=== PATIENT | female | born 1990 | race Caucasian/White ===

== ENCOUNTER 2018-02-11 17:04 | Outpatient (CLI) | payer MEDICAID, SELFPAY ==
--- NOTE | 2018-02-11 | US_ITS ---
US OB /maternal detail, US SD Ratio umbilical artery, US OB biophysical profile: INDICATION: 34 weeks with no care, patient in withdrawal ITS.REASON: no care, incarcerated, r/o abruption or ORDERING PHYSICIAN: Carrie Waller MD PATIENT AGE: 27 years TECHNIQUE: ultrasound transabdominal scanning. COMPARISON: No previous relevant studies. FINDINGS: The study is technically limited. The patient is in withdrawal and unable to hold still Single viable intrauterine gestation. Cephalic position. Placenta: Fundal placenta grade 3. There is average amount fluid. The cervix appears satisfactory. Closed and measuring 4 cm in length. Measurements: Average ultrasound age 33 weeks 0 days. Gestational Age 33 weeks 6 days. Estimated due date by ultrasound age 1204/01/2018. Estimated weight 2057 g grams.. This is 17th percentile BPD = 32 weeks 6 days OFD = 29 weeks 0 days HC = 33 weeks 4 days AC = 33 weeks 0 days FL = 32 weeks 3 days Growth Percentile= 17 percentile Heart Rate = 1 61 bpm HC/AC is 1.04. CI is 86%. FL/BPD is 76%. FL/AC is 22% SD ratio is 4.5 Resistive index is 0.78. Biophysical profile dated August 12 IMPRESSION: There is a single live fetus which is in cephalic presentation. heart and body motion is noted. Average ultrasound age is 33 weeks and 0 days with an estimated due date by ultrasound of 04/01/2018. All parameters correlate. Estimated weight is 2057 g which is 70%. Biophysical profile dated . Placenta is fundal and grade 3. ST ratio and resistive index are both greater than 95th percentile.
[2018-02-11 17:15] VITALS: BP 121/75; PULSE 88; RESP 18; TEMP 36.5; O2SAT 100; BMI 26.2
[2018-02-11 17:16] VITALS: BMI 25.7
[2018-02-11 19:39] LABS: Microscopic, Urine URINE MICROSCOPIC (MICROSCOPIC)
[2018-02-11 19:43] LABS: Appearance,Urine CLEAR (Clear); Bilirubin,Urine Negative (Negative); Blood, Urine Negative (Negative); Color,Urine YELLOW (Yellow); Glucose,Urine (UA) 1+ (Negative); Ketones,Urine 3+ (Negative); Leukocyte Esterase,Urine Negative (Negative); Nitrate,Urine Negative (Negative); Protein,Urine Negative (Negative); Urobilinogen,Urine 0.2 EU/dl (0.2)
[2018-02-11 19:50] LABS: Eosinophils % 0.2 % (0.1-12.0); Hematocrit 29.3 % (37.0-47.0); Hemoglobin 9.8 g/dL (12.2-16.2); Lymphocytes # 0.9 K/mm3 (0.7-4.5); Lymphocytes % 15.6 % (10-50); Mean Corpuscular HGB Conc 33.3 g/dL (31.8-35.4); Mean Corpuscular Hemoglobin 31.8 pg (27.0-31.2); Mean Corpuscular Volume 95.4 fl (81-99); Mean Platelet Volume 6.9 fl (7.4-10.4); Monocytes # 0.2 K/mm3 (0.1-1.0); Monocytes % 2.9 % (1.7-9.3); Neutrophils # 4.9 K/mm3 (1.8-7.8); Neutrophils % 81.3 % (37.0-80.0); Platelet Count 147 K/mm3 (142-424); Red Blood Count 3.07 M/mm3 (4.20-5.40); Red Cell Distribution Width 16.8 % (11.5-17.5)
[2018-02-11 19:55] LABS: Amphetamine/Metha Screen,Urine Negative ng/mL (<1000); Barbiturates Screen,Urine Negative ng/mL (<200); Benzodiazepines Screen,Urine Negative ng/mL (<200); Cannabinoid Screen,Urine Negative ng/mL (<50); Cocaine Screen,Urine Negative ng/mL (<300); Methadone Screen,Urine Positive ng/mL (<300); Opiate Screen,Urine Negative ng/mL (<300); Phencyclidine Screen,Urine Negative ng/mL (<25)
[2018-02-11 19:57] LABS: Bacteria,Urine Trace /lpf
[2018-02-13 08:26] LABS: HIV Screen 4th Generation wRfx Non Reactive (Non Reactive)
[2018-02-13 15:51] LABS: Hepatitis B Surface Antigen Negative (Negative); Rapid Plasma Reagin Ab Titer Non Reactive (NonRea<1:1); Rubella Antibodies, IgG 1.04 index (Immune >0.99)
== END 2018-02-11 22:00 | disposition left against medical advice (07) ==
LOC: OBOUT 17:07 → OB 17:09
PROVIDERS: Visit Provider Obstetrics & Gynecology
DX: O36.8130 Decreased fetal movements, third trimester, not applicable or unspecified (principal); Z3A.34 34 weeks gestation of pregnancy
CPT/HCPCS: 36415; 59025; 76811; 76819; 76820; 80305; 81001; 85025; 86592; 86762; 86850; 86870; 87340; 96360; 96361; 96372

== ENCOUNTER 2020-03-22 16:55 | Outpatient (RCR) | payer OTHER, SELFPAY ==
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
== END 2020-03-22 16:59 | disposition home or self-care (01) ==
LOC: PT 16:55
PROVIDERS: PCP Nurse Practitioner Family; Visit Provider Specialist
DX: R51.9 Headache, unspecified (principal); G89.29 Other chronic pain; M54.41 Lumbago with sciatica, right side; Z87.828 Personal history of other (healed) physical injury and trauma
CPT/HCPCS: 97163

== ENCOUNTER 2020-04-04 11:24 | Emergency (ER) | payer OTHER, SELFPAY ==
--- NOTE | 2020-04-04 12:07 | HMH.EDUTC ---
[facility] [place] Impression: Viral syndrome Disposition: Home, Self-Care Condition on Discharge: Good Instructions: DI for Viral Syndrome, Preventing the Spread of Coronavirus Discharge Instructions Additional Instructions: Drink plenty of fluids. Take tylenol for pain or fever. Take the medications as directed. Follow up with your regular doctor. GO TO THE ER FOR ANY WORSENING SYMPTOMS Prescriptions: Ondansetron [Zofran 4mg ODT] 4 mg PO Q8HP PRN #12 tab.rapdis PRN Reason: Nausea Transmission Status: Received by [facility][id number] Referrals: PCP,No [Primary Care Provider] - Forms: Work/School Release Time of Disposition: 12:20 Medical Decision Making - Medical Records Medical records reviewed: No: I reviewed the patient's medical records. - Christian Inquiry Pt receiving controlled substance: No Vital Signs: 04/04/20 12:16 04/04/20 13:08 Temperature 97.8 F 97.8 F Temperature Source Oral Pulse Rate 85 Pulse Rate [Left] 85 Respiratory Rate 19 19 Blood Pressure 112/73 Blood Pressure [Right Arm] 112/73 Blood Pressure Mean [Right Arm] 86 Blood Pressure Source [Right Arm] Automatic Cuff Blood Pressure Position [Right Arm] Sitting 02 Sat by Pulse Oximetry 98 Oxygen Delivery Method Room Air - Lab Data Lab Results 04/04/20 12:00: Influenza Type A Ag Negative, Influenza Type B Ag Negative 04/04/20 12:17: Strep Scn Rapid Clinic Negative Orders (Tests/Meds): ORDERS Category Date Time Status Covid-19 Nasal PCR Sendout P&C Stat Lab 04/04/20 12:00 Received Strep Screen Confirmation Stat Micro 04/04/20 12:17 [place] [facility] [place] - General Stated complaint: vomiting,achy.headache Time Seen by Provider: 04/04/20 12:16 - History of Present Illness Provider Complaint: She states that since earlier this morning, she has had n/v and body aches. She denies any known exposure to covid. - Related Data Home Medications Medication Instructions Recorded Confirmed Buprenorphine HCl/Naloxone HCl 1.5 tab SL DAILY 06/28/19 03/16/20 [Buprenorphin-Naloxon 8-2 mg Sl] Previous Rx's Medication Instructions Recorded amitriptyline 10 mg tablet See Rx Instructions PO HS #60 tab 03/16/20 sumatriptan succinate 100 mg tablet See Rx Instructions PO .COMPLEX 03/16/20 #10 tab Ondansetron [Zofran 4mg ODT] 4 mg PO Q8HP PRN #12 tab.rapdis 04/04/20 Allergies Allergy/AdvReac Type Severity Reaction Status Date / Time No Known Allergies Allergy Verified 03/16/20 09:34 [facility] History - Hepatitis A Screen Attestation statement:: This patient has been screened for Hepatitis A risk factors. I have reviewed the patient's past medical history: Yes Medical History: Reports:: Anxiety, Migraine Denies:: Diabetes Mellitus Type 1, Diabetes Mellitus Type 2, Internal Pacemaker Other Medical History: Reports: Anemia, Liver Disease (Hepatitis C) Other Surgeries: Yes: Dilation and Curettage, Splenectomy (partial splenectomy), Tubal Ligation. No: , Pacemaker Amputation: No Fractures: Yes (FEMUR) - Social History Smoking Status: Current every day smoker Tobacco Type: e-cigarettes # Packs/Day (cigarettes): 1 Alcohol Intake: never Substance Use Type: crack/cocaine, marijuana Occupational Status: employed Housing: house Household Members: family, children - Psychiatric History Pschychiatric History:: Reports:: Anxiety Family Hx:: Cancer, Other (copd) ROS Obtained: Yes All systems reviewed & no additional complaints - Constitutional Constitutional: Reports system reviewed and no additional complaints, except as docu - Eyes Eyes: Reports system reviewed and no additional complaints, except as docu - ENT Ears, Nose, Mouth, and Throat: Reports system reviewed and no additional complaints, except as docu - Cardiovascular Cardiovascular: Reports system reviewed and no additional complaints, except as docu - Respiratory Respiratory:
[2020-04-04 12:16] VITALS: BP 112/73; PULSE 85; RESP 19; TEMP 36.6; O2SAT 98; BMI 27.4
[2020-04-04 13:08] VITALS: BP 112/73; PULSE 85; RESP 19; TEMP 36.6; O2SAT 98
[2020-04-04 17:44] LABS: UTC Strep Screen (Rapid) Negative (Negative)
[2020-04-04 17:44] LABS: UTC Influenza A Antigen Negative (Negative); UTC Influenza B Antigen Negative (Negative)
[2020-04-05 10:00] LABS: Covid-19 Nasal PCR Sendout P&C Negative
== END 2020-04-04 13:09 | disposition home or self-care (01) ==
PROVIDERS: Emergency Provider Nurse Practitioner Family
DX: Z20.828 Contact with and (suspected) exposure to other viral communicable diseases (principal); B34.9 Viral infection, unspecified; F41.9 Anxiety disorder, unspecified; F17.290 Nicotine dependence, other tobacco product, uncomplicated
CPT/HCPCS: 87804; 87880; 99202; U0004

== ENCOUNTER 2020-04-26 17:46 | Emergency (ER) | payer OTHER, SELFPAY ==
[2020-04-26 17:46] VITALS: BP 133/82; PULSE 89; RESP 16; TEMP 37.1; O2SAT 99; BMI 29.1
--- NOTE | 2020-04-26 18:09 | HMH.EDUTC ---
[facility] [place] Clinical Impression: Exposure to COVID-19 virus Sinusitis Qualifiers: Sinusitis location: unspecified location Chronicity: acute Recurrence: non-recurrent Qualified Code(s): J01.90 - Acute sinusitis, unspecified Disposition: Home, Self-Care Condition on Discharge: Good Instructions: Preventing the Spread of Coronavirus Discharge Instructions Additional Instructions: Drink plenty of fluids. Take tylenol for pain or fever. Return if you begin to have difficulty breathing. Follow up with your regular doctor. GO TO THE ER FOR ANY WORSENING SYMPTOMS Prescriptions: Azithromycin [Z-Harry 250mg Tab*] 250 mg PO UD DOSE PK #6 tab Transmission Status: Received by [facility] # Cetirizine HCl [Zyrtec] 10 mg PO DAILY 30 Days #30 cap Transmission Status: Received by [facility] # Referrals: Hiren Mandujano APRN [Primary Care Provider] - Time of Disposition: 18:19 Medical Decision Making - Medical Records Medical records reviewed: No: I reviewed the patient's medical records. - Christian Inquiry Pt receiving controlled substance: No Vital Signs: 04/26/20 17:46 04/26/20 18:30 Temperature 98.7 F 98.7 F Temperature Source Oral Oral Pulse Rate 89 Pulse Rate [Right] 89 Respiratory Rate 16 16 Blood Pressure 133/82 Blood Pressure [Right Arm] 133/82 Blood Pressure Mean [Right Arm] 99 02 Sat by Pulse Oximetry 99 Orders (Tests/Meds): ORDERS Category Date Time Status Covid-19 Nasal PCR Sendout P&C Stat Lab 04/26/20 18:00 [place] [facility] [place] - General Stated complaint: Wants covid test, no symptoms Time Seen by Provider: 04/26/20 18:19 Description of Symptoms (Recalled from Triage Doc. by RN): pt request COVID test pt has no symptoms HEENT Symptoms (Recalled from RN notes): No Resp Symptoms (Recalled from RN notes): No Skin Symptoms (Recalled from RN notes): No MS Symptoms (Recalled from RN notes): No Functional Status (Recalled from RN notes): wnl - History of Present Illness Provider Complaint: She was sent here to have a covid test. She denies any symptoms. - Related Data Home Medications Medication Instructions Recorded Confirmed Buprenorphine HCl/Naloxone HCl 1.5 tab SL DAILY 06/28/19 03/16/20 [Buprenorphin-Naloxon 8-2 mg Sl] Previous Rx's Medication Instructions Recorded amitriptyline 10 mg tablet See Rx Instructions PO HS #60 tab 03/16/20 sumatriptan succinate 100 mg tablet See Rx Instructions PO .COMPLEX 03/16/20 #10 tab Ondansetron [Zofran 4mg ODT] 4 mg PO Q8HP PRN #12 tab.rapdis 04/04/20 Azithromycin [Z-Harry 250mg Tab*] 250 mg PO UD DOSE PK #6 tab 04/26/20 Cetirizine HCl [Zyrtec] 10 mg PO DAILY 30 Days #30 cap 04/26/20 Allergies Allergy/AdvReac Type Severity Reaction Status Date / Time No Known Allergies Allergy Verified 04/26/20 18:04 - Worker's Comp Is this a Worker's Comp case?: No Is this an H Worker's Comp?: No Is this a [place] Worker's Comp?: No [facility] History - Hepatitis A Screen Drug use history?: No High risk sexual behaviors?: No History of sexually transmitted infection?: No Currently employed?: No Childcare worker?: No Do you have indoor plumbing?: No Do you have electricity?: No Attestation statement:: This patient has been screened for Hepatitis A risk factors. I have reviewed the patient's past medical history: Yes Medical History: Reports:: Anxiety, Migraine Denies:: Diabetes Mellitus Type 1, Diabetes Mellitus Type 2, Internal Pacemaker Other Medical History: Reports: Anemia, Liver Disease (Hepatitis C) Other Surgeries: Yes: Dilation and Curettage, Splenectomy (partial splenectomy), Tubal Ligation. No: , Pacemaker Amputation: No Fractures: Yes (FEMUR) - Social History Smoking Status: Never smoker Tobacco Type: smokeless tobacco # Packs/Day (cigarettes): 1 Alcohol Intake: never Substance Use Type: crack/cocaine, marijuana Occupational Status: other Housing
[2020-04-26 18:30] VITALS: BP 133/82; PULSE 89; RESP 16; TEMP 37.1; O2SAT 99
[2020-04-28 11:11] LABS: Covid-19 Nasal PCR Sendout P&C NEGATIVE
== END 2020-04-26 18:31 | disposition home or self-care (01) ==
PROVIDERS: Emergency Provider Nurse Practitioner Family; PCP Nurse Practitioner Family
DX: Z20.822 Contact with and (suspected) exposure to COVID-19 (principal); J01.90 Acute sinusitis, unspecified; F41.9 Anxiety disorder, unspecified; G43.709 Chronic migraine without aura, not intractable, without status migrainosus; F17.210 Nicotine dependence, cigarettes, uncomplicated; Z79.899 Other long term (current) drug therapy
CPT/HCPCS: 99202; G0463; U0004

== ENCOUNTER → 2020-04-29 09:53 | Outpatient (CLI) | payer OTHER, SELFPAY ==
--- NOTE | 2020-04-29 09:54 | MR_ITS ---
PROCEDURE: MR HEAD/BRAIN WO CON CLINICAL INDICATION: chronic headaches PT C/O MIGRAINE H/A'S SINCE June 2018 AND THEY ARE GETTING WORSE. COMPARISON: No exams were available for comparison TECHNIQUE: Routine multiplanar multi echo sequences are performed without gadolinium enhancement. FINDINGS: No midline shift, mass effect, intracranial hemorrhage, or hydrocephalus. The cerebellopontine angles, cerebellum, brainstem, and mid brain have an unremarkable appearance. Unremarkable white matter. The pituitary, optic chiasm, corpus callosum, and craniocervical junction have an unremarkable appearance. No mastoid effusion or sinus air-fluid levels. Unremarkable orbits. IMPRESSION: Negative MRI of the brain without contrast. No acute finding. Dictated by: Andrews Salcedo MD 05/02/2020 09:54 Andrews Salcedo MD in [place] 05/02/2020 09:54
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
== END ==
PROVIDERS: PCP Nurse Practitioner Family; Visit Provider Specialist
DX: F19.11 Other psychoactive substance abuse, in remission (principal); R51.9 Headache, unspecified; G89.29 Other chronic pain; M54.41 Lumbago with sciatica, right side; Z87.828 Personal history of other (healed) physical injury and trauma
CPT/HCPCS: 70551; 72110

== ENCOUNTER 2020-06-01 19:44 | Emergency (ER) | payer OTHER, SELFPAY ==
[2020-06-01 19:45] VITALS: BP 108/60; PULSE 67; RESP 20; TEMP 37.1; O2SAT 97; BMI 28.3
[2020-06-01 20:27] VITALS: BP 108/60; PULSE 67; RESP 20; TEMP 37.1; O2SAT 97
--- NOTE | 2020-06-01 20:28 | HMH.EDUTC ---
[facility] [place]ression: Encounter for laboratory testing for COVID-19 virus Headache Qualifiers: Headache type: unspecified Headache chronicity pattern: unspecified pattern Intractability: not intractable Qualified Code(s): R51.9 - Headache, unspecified Disposition: Home, Self-Care Condition on Discharge: Good Instructions: DI for Headache, DI for COVID-19 (Suspected or Confirmed ), Coronavirus Disease 2019, Preventing the Spread of Coronavirus Discharge Instructions Additional Instructions: Go home lay down and try to sleep off remainder of headache *Monitor Temp, Over the counter Motrin or Tylenol as directed/as needed Tylenol every 4 hours and Motrin every 6 hours (as long as your family doctor has told you that you can take it) for fever or pain. and straight to ER if unable to lower temp less than 101.0 after medication given Follow up IMMEDIATELY for new or worsening symptoms or no Noticeable improvement over the next 48-72 hours. 911 for difficulty breathing or swallowing You were tested for today for COVID19 your test result should be back in the next 24-48 hours, you may call to the [facility] to see if your test results are back in the next 48 hours [phone] [facility] hours are 9am-9pm You was given a handout with instructions for Self Quarantine and Self isolation for while you wait on test results and what to do if they are positive If you are positive the Health Dept will be contacting you also Referrals: Terry Hardy MD [Primary Care Provider] - As needed Forms: Work/School Release Time of Disposition: 20:57 Medical Decision Making - Christian Inquiry Pt receiving controlled substance: No Christian was queried for this patient: No Vital Signs: 06/01/20 19:45 06/01/20 20:27 Temperature 98.7 F 98.7 F Temperature Source Oral Pulse Rate 67 Pulse Rate [Right Brachial] 67 Respiratory Rate 20 20 Blood Pressure 108/60 L Blood Pressure [Right Arm] 108/60 L Blood Pressure Mean [Right Arm] 76 Blood Pressure Source [Right Arm] Automatic Cuff Blood Pressure Position [Right Arm] Sitting 02 Sat by Pulse Oximetry 97 Oxygen Delivery Method Room Air Orders (Tests/Meds): ED MEDICATIONS Discontinued Medications Generic Name Dose Route Start Last Admin Trade Name Freq PRN Reason Stop Dose Admin Ketorolac Tromethamine 60 mg 06/01/20 20:42 06/01/20 20:35 Ketorolac 60mg/2ml Vial IM 06/01/20 20:43 60 mg ONCE ONE Administration ORDERS Category Date Time Status Covid-19 Nasal PCR [facility]) Routine Lab 06/01/20 19:50 Received Medical Decision Narrative: Patient states that she has had tubal Patient states that headache is much better and almost gone after Toradol [facility] [place] - General Stated complaint: covid test Time Seen by Provider: 06/01/20 20:28 Mode of Arrival: Ambulatory Source of Information: Patient Limitations: No Limitations Description of Symptoms (Recalled from Triage Doc. by RN): COVID TEST D/T POSSIBLE EXPOSURE. C/O HEADACHE X 6 DAYS HEENT Symptoms (Recalled from RN notes): Yes Resp Symptoms (Recalled from RN notes): No Skin Symptoms (Recalled from RN notes): No MS Symptoms (Recalled from RN notes): No Functional Status (Recalled from RN notes): WNL - History of Present Illness Provider Complaint: Patient states that she was around someone last week that was positive for COVID States that she has had headache for about 6 days on and off States that she took her migraine medication yesterday and helped then today it was back States that she wanted to see if she could get something for headache - Related Data Home Medications Medication Instructions Recorded Confirmed Buprenorphine HCl/Naloxone HCl 1.5 tab SL DAILY 06/28/19 03/16/20 [Buprenorphin-Naloxon 8-2 mg Sl] Previous Rx's Medication Instructions Recorded amitriptyline 10 mg tablet See Rx Instructions PO HS #60 tab 03/16/20 sumatriptan succinate 100 mg tablet See Rx Instructions PO .COM
== END 2020-06-01 21:10 | disposition home or self-care (01) ==
PROVIDERS: Emergency Provider Nurse Practitioner; PCP Internal Medicine Adolescent Medicine
DX: Z20.822 Contact with and (suspected) exposure to COVID-19 (principal); R51.9 Headache, unspecified; F41.9 Anxiety disorder, unspecified
CPT/HCPCS: 99202; G0463; U0003

== ENCOUNTER 2020-07-25 11:31 | Emergency (ER) | payer OTHER, SELFPAY ==
[2020-07-25 11:44] VITALS: BP 97/64; PULSE 68; RESP 14; O2SAT 98; BMI 28.3
--- NOTE | 2020-07-25 11:52 | HMH.EDUTC ---
[facility] [place] Clinical Impression: Exposure to COVID-19 virus Disposition: Home, Self-Care Condition on Discharge: Good Instructions: Preventing the Spread of Coronavirus Discharge Instructions Additional Instructions: Drink plenty of fluids. Take tylenol for pain or fever. Return if you begin to have difficulty breathing. Follow up with your regular doctor. GO TO THE ER FOR ANY WORSENING SYMPTOMS Referrals: Hiren Mandujano APRN [Primary Care Provider] - Forms: Work/School Release Time of Disposition: 11:55 Medical Decision Making - Medical Records Medical records reviewed: No: I reviewed the patient's medical records. - Christian Inquiry Pt receiving controlled substance: No Vital Signs: 07/25/20 11:44 07/25/20 11:56 Temperature 98.2 F Pulse Rate 68 Pulse Rate [Right Brachial] 68 Respiratory Rate 14 14 Blood Pressure 97/64 L Blood Pressure [Right Arm] 97/64 L Blood Pressure Mean [Right Arm] 75 Blood Pressure Source Automatic Cuff Blood Pressure Source [Right Arm] Automatic Cuff Blood Pressure Position Sitting Blood Pressure Position [Right Arm] Sitting 02 Sat by Pulse Oximetry 98 Oxygen Delivery Method Room Air Orders (Tests/Meds): ORDERS Category Date Time Status Covid-19 Nasal PCR ([facility]) Routine Lab 07/25/20 11:40 Received [facility] [place] - General Stated complaint: covid exposure Time Seen by Provider: 07/25/20 11:52 Mode of Arrival: Ambulatory Source of Information: Patient Limitations: No Limitations Description of Symptoms (Recalled from Triage Doc. by RN): Pt known covid exposure HEENT Symptoms (Recalled from RN notes): No Resp Symptoms (Recalled from RN notes): No Skin Symptoms (Recalled from RN notes): No MS Symptoms (Recalled from RN notes): No Functional Status (Recalled from RN notes): wnl - History of Present Illness Provider Complaint: She states that she was exposed to covid-19 last week. She denies any symptoms, but when she tried to go to work she was told that she needs to have a negative covid test before she can return. - Related Data Home Medications Medication Instructions Recorded Confirmed Buprenorphine HCl/Naloxone HCl 1.5 tab SL DAILY 06/28/19 03/16/20 [Buprenorphin-Naloxon 8-2 mg Sl] Previous Rx's Medication Instructions Recorded amitriptyline 10 mg tablet See Rx Instructions PO HS #60 tab 12/10/20 sumatriptan succinate 100 mg tablet See Rx Instructions PO .COMPLEX 03/16/20 #10 tab Ondansetron [Zofran 4mg ODT] 4 mg PO Q8HP PRN #12 tab.rapdis 04/04/20 Azithromycin [Z-Harry 250mg Tab*] 250 mg PO UD DOSE PK #6 tab 04/26/20 Cetirizine HCl [Zyrtec] 10 mg PO DAILY 30 Days #30 cap 04/26/20 Allergies Allergy/AdvReac Type Severity Reaction Status Date / Time No Known Allergies Allergy Verified 07/25/20 11:37 - Worker's Comp Is this a Worker's Comp case?: No [facility] History - Hepatitis A Screen Drug use history?: Yes High risk sexual behaviors?: No History of sexually transmitted infection?: No Currently employed?: No Childcare worker?: No Do you have indoor plumbing?: Yes Do you have electricity?: Yes Attestation statement:: This patient has been screened for Hepatitis A risk factors. I have reviewed the patient's past medical history: Yes Medical History: Reports:: Anxiety, Migraine Denies:: Diabetes Mellitus Type 1, Diabetes Mellitus Type 2, Internal Pacemaker Other Medical History: Reports: Anemia, Liver Disease (Hepatitis C) Other Surgeries: Yes: Dilation and Curettage, Splenectomy (partial splenectomy), Tubal Ligation. No: , Pacemaker Amputation: No Fractures: Yes (FEMUR) - Social History Smoking Status: Current every day smoker Tobacco Type: smokeless tobacco # Packs/Day (cigarettes): 1 Alcohol Intake: never Substance Use Type: crack/cocaine, marijuana Occupational Status: employed Housing: house Household Members: family, children - Psychiatric History Pschychiatric History::
[2020-07-25 11:56] VITALS: BP 97/64; PULSE 68; RESP 14; TEMP 36.8
== END 2020-07-25 11:58 | disposition home or self-care (01) ==
PROVIDERS: Emergency Provider Nurse Practitioner Family; PCP Nurse Practitioner Family
DX: Z20.822 Contact with and (suspected) exposure to COVID-19 (principal); F41.9 Anxiety disorder, unspecified; G43.709 Chronic migraine without aura, not intractable, without status migrainosus; F17.290 Nicotine dependence, other tobacco product, uncomplicated
CPT/HCPCS: 99202; G0463; U0003

== ENCOUNTER 2020-07-31 12:17 | Emergency (ER) | payer OTHER, SELFPAY ==
[2020-07-31 12:54] VITALS: BP 128/70; PULSE 70; RESP 19; TEMP 36.6; O2SAT 99; BMI 29.2
--- NOTE | 2020-07-31 13:23 | HMH.EDUTC ---
[facility] [place] Disposition Clinical Impression: Encounter for laboratory testing for COVID-19 virus Disposition: Home, Self-Care Condition on Discharge: Good Instructions: DI for COVID-19 (Suspected or Confirmed ), Coronavirus Disease 2019, Preventing the Spread of Coronavirus Discharge Instructions Additional Instructions: *Monitor Temp, Over the counter Motrin or Tylenol as directed/as needed Tylenol every 4 hours and Motrin every 6 hours (as long as your family doctor has told you that you can take it) for fever or pain. and straight to ER if unable to lower temp less than 101.0 after medication given Follow up IMMEDIATELY for new or worsening symptoms or no Noticeable improvement over the next 48-72 hours. 911 for difficulty breathing or swallowing You were tested for today for COVID19 your test result should be back in the next 24-48 hours, you may call to the [facility] to see if your test results are back in the next 48 hours [phone] [facility] hours are 9am-9pm You was given a handout with instructions for Self Quarantine and Self isolation for while you wait on test results and what to do if they are positive If you are positive the Health Dept will be contacting you also Referrals: Hiren Mandujano APRN [Primary Care Provider] - As needed Forms: Work/School Release Time of Disposition: 13:24 Medical Decision Making - Christian Inquiry Pt receiving controlled substance: No Christian was queried for this patient: No Vital Signs: 07/31/20 12:54 Temperature 97.8 F Temperature Source Oral Pulse Rate [Right Brachial] 70 Respiratory Rate 19 Blood Pressure [Right Arm] 128/70 Blood Pressure Mean [Right Arm] 89 Blood Pressure Source [Right Arm] Automatic Cuff Blood Pressure Position [Right Arm] Sitting 02 Sat by Pulse Oximetry 99 Oxygen Delivery Method Room Air Orders (Tests/Meds): ORDERS Category Date Time Status Covid-19 Nasal PCR ([facility]) Routine Lab 07/31/20 12:48 Received [facility] [place] HPI - General Stated complaint: covid test Time Seen by Provider: 07/31/20 13:23 Mode of Arrival: Ambulatory Source of Information: Patient Limitations: No Limitations Description of Symptoms (Recalled from Triage Doc. by RN): Covid test HEENT Symptoms (Recalled from RN notes): No Resp Symptoms (Recalled from RN notes): No Skin Symptoms (Recalled from RN notes): No MS Symptoms (Recalled from RN notes): No Functional Status (Recalled from RN notes): wnl - History of Present Illness Provider Complaint: Patient state that several family members have tested positive for COVID States that she isnt having any symptoms but work wanted her tested before she can come back - Related Data Home Medications Medication Instructions Recorded Confirmed Buprenorphine HCl/Naloxone HCl 1.5 tab SL DAILY 06/28/19 03/16/20 [Buprenorphin-Naloxon 8-2 mg Sl] Previous Rx's Medication Instructions Recorded amitriptyline 10 mg tablet See Rx Instructions PO HS #60 tab 03/16/20 sumatriptan succinate 100 mg tablet See Rx Instructions PO .COMPLEX 03/16/20 #10 tab Ondansetron [Zofran 4mg ODT] 4 mg PO Q8HP PRN #12 tab.rapdis 04/04/20 Azithromycin [Z-Harry 250mg Tab*] 250 mg PO UD DOSE PK #6 tab 04/26/20 Cetirizine HCl [Zyrtec] 10 mg PO DAILY 30 Days #30 cap 04/26/20 Allergies Allergy/AdvReac Type Severity Reaction Status Date / Time No Known Allergies Allergy Verified 07/25/20 11:37 - Worker's Comp Is this a Worker's Comp case?: No [facility] History - Hepatitis A Screen Drug use history?: No High risk sexual behaviors?: No History of sexually transmitted infection?: No Currently employed?: No Childcare worker?: No Do you have indoor plumbing?: Yes Do you have electricity?: Yes Attestation statement:: This patient has been screened for Hepatitis A risk factors. I have reviewed the patient's past medical history: Yes Medical History: Reports:: Anxiety, Migraine Denies:: Diabetes Mellitus Type 1, Diabetes Mellitus Type 2, Internal Pa
[2020-07-31 13:28] VITALS: BP 128/70; PULSE 70; RESP 19; TEMP 36.6; O2SAT 99
== END 2020-07-31 13:29 | disposition home or self-care (01) ==
PROVIDERS: Emergency Provider Nurse Practitioner; PCP Nurse Practitioner Family
DX: Z20.822 Contact with and (suspected) exposure to COVID-19 (principal); F41.9 Anxiety disorder, unspecified; G43.709 Chronic migraine without aura, not intractable, without status migrainosus; F17.290 Nicotine dependence, other tobacco product, uncomplicated
CPT/HCPCS: 99202; G0463; U0003

== ENCOUNTER 2020-08-22 15:15 | Emergency (ER) | payer OTHER, SELFPAY ==
[2020-08-22 15:29] VITALS: BP 125/76; PULSE 74; RESP 17; TEMP 36.9; O2SAT 100; BMI 29.1
[2020-08-22 15:41] VITALS: BP 125/76; PULSE 74; RESP 17; TEMP 36.9; O2SAT 100
--- NOTE | 2020-08-22 16:14 | HMH.EDUTC ---
[facility] [place] Disposition Clinical Impression: Exposure to COVID-19 virus Disposition: Home, Self-Care Condition on Discharge: Good Instructions: Preventing the Spread of Coronavirus Discharge Instructions Additional Instructions: Drink plenty of fluids. Take tylenol for pain or fever. Return if you begin to have difficulty breathing. Follow up with your regular doctor. GO TO THE ER FOR ANY WORSENING SYMPTOMS Prescriptions: Ondansetron [Zofran 4mg ODT] 4 mg PO Q8HP PRN #12 tab.rapdis PRN Reason: Nausea Transmission Status: Received by [facility] #[id number] Referrals: Terry Hardy MD [Primary Care Provider] - Forms: Work/School Release Time of Disposition: 16:25 Medical Decision Making - Medical Records Medical records reviewed: No: I reviewed the patient's medical records. - Christian Inquiry Pt receiving controlled substance: No Vital Signs: 08/22/20 15:29 08/22/20 15:41 Temperature 98.4 F 98.4 F Temperature Source Oral Pulse Rate 74 Pulse Rate [Right] 74 Respiratory Rate 17 17 Blood Pressure 125/76 Blood Pressure [Right Arm] 125/76 Blood Pressure Mean [Right Arm] 92 Blood Pressure Source [Right Arm] Automatic Cuff Blood Pressure Position [Right Arm] Sitting 02 Sat by Pulse Oximetry 100 Oxygen Delivery Method Room Air Orders (Tests/Meds): ORDERS Category Date Time Status Covid-19 Nasal PCR ([facility]) Routine Lab 08/22/20 15:31 Received [facility] [place] HPI - General Stated complaint: possble exposed to COVID,HOFF Time Seen by Provider: 08/22/20 16:14 Mode of Arrival: Ambulatory Source of Information: Patient Limitations: No Limitations Description of Symptoms (Recalled from Triage Doc. by RN): coworkers have came up postive for covid. pt is c/o a migraine. HEENT Symptoms (Recalled from RN notes): Yes (HOFF) Resp Symptoms (Recalled from RN notes): No Skin Symptoms (Recalled from RN notes): No MS Symptoms (Recalled from RN notes): No Functional Status (Recalled from RN notes): na - History of Present Illness Provider Complaint: She states that she was exposed to covid last week. For the past 3 days she has had a nagging head ache ands he has felt bad. She denies any cough, congestion, or shortness of breath. - Related Data Home Medications Medication Instructions Recorded Confirmed Buprenorphine HCl/Naloxone HCl 1.5 tab SL DAILY 06/28/19 03/16/20 [Buprenorphin-Naloxon 8-2 mg Sl] Previous Rx's Medication Instructions Recorded amitriptyline 10 mg tablet See Rx Instructions PO HS #60 tab 03/16/20 sumatriptan succinate 100 mg tablet See Rx Instructions PO .COMPLEX 03/16/20 #10 tab Ondansetron [Zofran 4mg ODT] 4 mg PO Q8HP PRN #12 tab.rapdis 04/04/20 Azithromycin [Z-Harry 250mg Tab*] 250 mg PO UD DOSE PK #6 tab 04/26/20 Cetirizine HCl [Zyrtec] 10 mg PO DAILY 30 Days #30 cap 04/26/20 Ondansetron [Zofran 4mg ODT] 4 mg PO Q8HP PRN #12 tab.rapdis 08/22/20 Allergies Allergy/AdvReac Type Severity Reaction Status Date / Time No Known Allergies Allergy Verified 08/22/20 15:27 - Worker's Comp Is this a Worker's Comp case?: No H History - Hepatitis A Screen Drug use history?: No High risk sexual behaviors?: No History of sexually transmitted infection?: No Currently employed?: No Childcare worker?: No Do you have indoor plumbing?: Yes Do you have electricity?: Yes Attestation statement:: This patient has been screened for Hepatitis A risk factors. I have reviewed the patient's past medical history: Yes Medical History: Reports:: Anxiety, Migraine Denies:: Diabetes Mellitus Type 1, Diabetes Mellitus Type 2, Internal Pacemaker Other Medical History: Reports: Anemia, Liver Disease (Hepatitis C) Other Surgeries: Yes: Dilation and Curettage, Splenectomy (partial splenectomy), Tubal Ligation. No: , Pacemaker Amputation: No Fractures: Yes (FEMUR) - Social History Smoking Status: Never smoker Tobacco Type: smokeless tobacco # Pack
== END 2020-08-22 16:27 | disposition home or self-care (01) ==
PROVIDERS: Emergency Provider Nurse Practitioner Family; PCP Internal Medicine Adolescent Medicine
DX: Z20.822 Contact with and (suspected) exposure to COVID-19 (principal); R51.9 Headache, unspecified; F41.9 Anxiety disorder, unspecified; Z79.899 Other long term (current) drug therapy
CPT/HCPCS: 99202; G0463; U0003

== ENCOUNTER 2020-10-31 14:39 | Emergency (ER) | payer OTHER, SELFPAY ==
--- NOTE | 2020-10-31 15:54 | HMH.EDUTC ---
[facility] [place] Disposition Clinical Impression: Crushing injury of finger of left hand, Nail bed injury Disposition: Home, Self-Care Condition on Discharge: Good Instructions: DI for Crush Injury, DI for Nail Bed Injury Additional Instructions: Rest the extremity, Elevate the extremity as tolerated while you are resting. Take ibuprofen for pain. I sent in a prescription to your pharmacy. Take the antibiotics and apply the topical ointment as directed. Follow up with your regular doctor. GO TO THE ER FOR ANY WORSENING SYMPTOMS Prescriptions: Mupirocin [Bactroban 2% Ointment 22gm tube] 1 applicatio TP TID 7 Days #1 tube Transmission Status: Received by [id number] # cephALEXin [cephALEXin 500mg capsule] 500 mg PO Q6H 10 Days #40 cap Transmission Status: Received by [id number] # Referrals: Hiren Mandujano APRN [Primary Care Provider] - Forms: Work/School Release Time of Disposition: 16:03 Medical Decision Making - Medical Records Medical records reviewed: No: I reviewed the patient's medical records. - Christian Inquiry Pt receiving controlled substance: No Vital Signs: 10/31/20 16:00 10/31/20 16:24 Temperature 98.4 F 98.4 F Temperature Source Oral Pulse Rate 69 Pulse Rate [Right Radial] 69 Respiratory Rate 18 18 Blood Pressure 126/96 H Blood Pressure [Right Arm] 126/96 H Blood Pressure Mean [Right Arm] 106 Blood Pressure Source [Right Arm] Automatic Cuff Blood Pressure Position [Right Arm] Sitting 02 Sat by Pulse Oximetry 98 Oxygen Delivery Method Room Air Room Air Orders (Tests/Meds): ORDERS Category Date Time Status Wound Culture and Gram Stain Stat Micro 10/31/20 16:10 Results [facility] [place] HPI - General Stated complaint: ao 10/27/20 injury Lt pinky Time Seen by Provider: 10/31/20 15:54 - History of Present Illness Provider Complaint: She got her left fifth finger nail hung in a door 3 days ago. Her nail was mashed. Since then her nail has began to have some yellowish drainage from beneath it and it has redness in both the lateral and medial nail fold. She denies any other complaint. She is moving the finger without pain or difficulty. - Related Data Home Medications Medication Instructions Recorded Confirmed Buprenorphine HCl/Naloxone HCl 1.5 tab SL DAILY 06/28/19 03/16/20 [Buprenorphin-Naloxon 8-2 mg Sl] Previous Rx's Medication Instructions Recorded amitriptyline 10 mg tablet See Rx Instructions PO HS #60 tab 03/16/20 sumatriptan succinate 100 mg tablet See Rx Instructions PO .COMPLEX 03/16/20 #10 tab Ondansetron [Zofran 4mg ODT] 4 mg PO Q8HP PRN #12 tab.rapdis 04/04/20 Azithromycin [Z-Harry 250mg Tab*] 250 mg PO UD DOSE PK #6 tab 04/26/20 Cetirizine HCl [Zyrtec] 10 mg PO DAILY 30 Days #30 cap 04/26/20 Ondansetron [Zofran 4mg ODT] 4 mg PO Q8HP PRN #12 tab.rapdis 08/22/20 Mupirocin [Bactroban 2% Ointment 1 applicatio TP TID 7 Days #1 tube 10/31/20 22gm tube] cephALEXin [cephALEXin 500mg 500 mg PO Q6H 10 Days #40 cap 10/31/20 capsule] Allergies Allergy/AdvReac Type Severity Reaction Status Date / Time No Known Allergies Allergy Verified 08/22/20 15:[address] [facility] History - Hepatitis A Screen Attestation statement:: This patient has been screened for Hepatitis A risk factors. I have reviewed the patient's past medical history: Yes Medical History: Reports:: Anxiety, Migraine Denies:: Diabetes Mellitus Type 1, Diabetes Mellitus Type 2, Internal Pacemaker Other Medical History: Reports: Anemia, Liver Disease (Hepatitis C) Other Surgeries: Yes: Dilation and Curettage, Splenectomy (partial splenectomy), Tubal Ligation. No: , Pacemaker Amputation: No Fractures: Yes (FEMUR) - Social History Smoking Status: Never smoker Tobacco Type: smokeless tobacco # Packs/Day (cigarettes): 1 Alcohol Intake: never Substance Use Type: crack/cocaine, marijuana Occupational Status: other Housing: house Hous
[2020-10-31 16:00] VITALS: BP 126/96; PULSE 69; RESP 18; TEMP 36.9; O2SAT 98; BMI 28.2
[2020-10-31 16:24] VITALS: BP 126/96; PULSE 69; RESP 18; TEMP 36.9; O2SAT 98
== END 2020-10-31 16:25 | disposition home or self-care (01) ==
PROVIDERS: Emergency Provider Nurse Practitioner Family; PCP Nurse Practitioner Family
DX: S67.22XA Crushing injury of left hand, initial encounter (principal); S67.197A Crushing injury of left little finger, initial encounter; W23.0XXA Caught, crushed, jammed, or pinched between moving objects, initial encounter; Y92.9 Unspecified place or not applicable; G43.709 Chronic migraine without aura, not intractable, without status migrainosus; F41.8 Other specified anxiety disorders; B18.2 Chronic viral hepatitis C; Z79.899 Other long term (current) drug therapy
CPT/HCPCS: 87070; 87077; 87186; 87205; 99202; G0463

== ENCOUNTER 2020-12-30 09:33 | Emergency (ER) | payer OTHER, SELFPAY ==
[2020-12-30 10:05] VITALS: BP 114/69; PULSE 98; RESP 18; TEMP 37; O2SAT 98; BMI 29.2
[2020-12-30 10:22] LABS: UTC Strep Screen (Rapid) Negative (Negative)
--- NOTE | 2020-12-30 10:33 | HMH.EDUTC ---
[facility] [place] Disposition Clinical Impression: Bronchitis Disposition: Home, Self-Care Condition on Discharge: Good Instructions: DI for Acute Bronchitis Additional Instructions: You have been tested for COVID19. Please isolate as if you are positive until test results received. Prescriptions: Albuterol Sulfate [Albuterol Sulfate Hfa] 6.7 gm IH Q4HP PRN 30 Days #1 each PRN Reason: Shortness Of Breath Transmission Status: Pending to [facility] # guaiFENesin [Mucinex 600mg tablet] 600 mg PO BID 10 Days #20 tab Transmission Status: Pending to [facility] # predniSONE [Prednisone 20mg Tab] 20 mg PO BID 5 Days #10 tab Transmission Status: Pending to [facility] # Azithromycin [Z-Harry 250mg Tab] 250 mg PO DIRECTED #6 tab Transmission Status: Pending to [facility] # Referrals: Hiren Mandujano APRN [Primary Care Provider] - Time of Disposition: 10:45 Medical Decision Making - Christian Inquiry Pt receiving controlled substance: No Vital Signs: 12/30/20 10:05 Temperature 98.6 F Temperature Source Oral Pulse Rate [Right Brachial] 98 H Respiratory Rate 18 Blood Pressure [Right Arm] 114/69 Blood Pressure Mean [Right Arm] 84 Blood Pressure Source [Right Arm] Automatic Cuff Blood Pressure Position [Right Arm] Sitting 02 Sat by Pulse Oximetry 98 Oxygen Delivery Method Room Air - Lab Data Lab Results 12/30/20 10:16: Strep Scn Rapid Clinic Negative Orders (Tests/Meds): ORDERS Category Date Time Status Strep Screen Confirmation Stat Micro 12/30/20 10:16 Received [facility] [place] HPI - General Stated complaint: covid symptoms Time Seen by Provider: 12/30/20 10:37 Mode of Arrival: Ambulatory Source of Information: Patient Limitations: No Limitations Description of Symptoms (Recalled from Triage Doc. by RN): PATIENT C/O HEADACHE, BODY ACHES, CONGESTION, COUGH AND SORE THROAT THAT STARTED FRIDAY NIGHT HEENT Symptoms (Recalled from RN notes): Yes Resp Symptoms (Recalled from RN notes): Yes Skin Symptoms (Recalled from RN notes): No MS Symptoms (Recalled from RN notes): Yes Functional Status (Recalled from RN notes): WNL - History of Present Illness Provider Complaint: Fever 3 days ago, now resolved. Has cough, congestion, body aches, chills. Nausea but no vomiting or diarrhea. No rash. Has sore throat. No known exposure to COVID19. Onset (ago): day(s) (3) Location: chest Consistency: constant Relieving factors: none Exacerbating factors: none Associated symptoms: cough, malaise, nausea/vomiting Treatments prior to arrival: none - Related Data Home Medications Medication Instructions Recorded Confirmed Buprenorphine HCl/Naloxone HCl 1.5 tab SL DAILY 06/28/19 03/16/20 [Buprenorphin-Naloxon 8-2 mg Sl] Previous Rx's Medication Instructions Recorded amitriptyline 10 mg tablet See Rx Instructions PO HS #60 tab 03/16/20 sumatriptan succinate 100 mg tablet See Rx Instructions PO .COMPLEX 03/16/20 #10 tab Ondansetron [Zofran 4mg ODT] 4 mg PO Q8HP PRN #12 tab.rapdis 04/04/20 Azithromycin [Z-Harry 250mg Tab*] 250 mg PO UD DOSE PK #6 tab 04/26/20 Cetirizine HCl [Zyrtec] 10 mg PO DAILY 30 Days #30 cap 04/26/20 Ondansetron [Zofran 4mg ODT] 4 mg PO Q8HP PRN #12 tab.rapdis 08/22/20 Mupirocin [Bactroban 2% Ointment 1 applicatio TP TID 7 Days #1 tube 10/31/20 22gm tube] cephALEXin [cephALEXin 500mg 500 mg PO Q6H 10 Days #40 cap 10/31/20 capsule] Albuterol Sulfate [Albuterol 6.7 gm IH Q4HP PRN 30 Days #1 each 12/30/20 Sulfate Hfa] Azithromycin [Z-Harry 250mg Tab] 250 mg PO DIRECTED #6 tab 12/30/20 guaiFENesin [Mucinex 600mg tablet] 600 mg PO BID 10 Days #20 tab 12/30/20 predniSONE [Prednisone 20mg 20 mg PO BID 5 Days #10 tab 12/30/20 Tab] Allergies Allergy/AdvReac Type Severity Reaction Status Date / Time No Known Allergies Allergy Verified 08/22/20 15:27 - Worker's Comp Is this a Worker's
[2020-12-30 10:48] VITALS: BP 114/69; PULSE 98; RESP 18; TEMP 37; O2SAT 98
== END 2020-12-30 10:52 | disposition home or self-care (01) ==
PROVIDERS: Emergency Provider Physician Assistant; PCP Nurse Practitioner Family
DX: J20.9 Acute bronchitis, unspecified (principal); Z20.822 Contact with and (suspected) exposure to COVID-19; F41.9 Anxiety disorder, unspecified
CPT/HCPCS: 87880; 99203; C9803; G0463; U0003; U0005

== ENCOUNTER → 2021-05-18 13:25 | Outpatient (CLI) | payer OTHER, SELFPAY | PROVIDERS: PCP Nurse Practitioner Family; Visit Provider Nurse Practitioner | DX: Z20.822 Contact with and (suspected) exposure to COVID-19 (principal) | CPT/HCPCS: C9803; U0003; U0005 ==

== ENCOUNTER 2021-07-02 15:42 | Emergency (ER) | payer OTHER, SELFPAY ==
[2021-07-02 16:40] VITALS: BP 136/84; PULSE 76; RESP 19; TEMP 36.7; O2SAT 99; BMI 29.0
[2021-07-02 16:58] LABS: UTC Influenza A Antigen Negative (Negative); UTC Influenza B Antigen Negative (Negative)
--- NOTE | 2021-07-02 17:09 | HMH.EDUTC ---
[facility] [place] Disposition Clinical Impression: Viral syndrome Disposition: Home, Self-Care Condition on Discharge: Good Instructions: DI for Viral Syndrome, DI for Headache Additional Instructions: Go home lay down and try to sleep off remainder of headache FOllow up with your Family Doctor if no improvement or any worsening of symptoms Return if needed You may check your results on the [facility] my health portal if you have trouble logging on you may call Referrals: Hiren Mandujano APRN [Primary Care Provider] - As needed Forms: Work/School Release Time of Disposition: 17:19 Medical Decision Making - Christian Inquiry Pt receiving controlled substance: No Christian was queried for this patient: No Vital Signs: 07/02/21 16:40 07/02/21 17:21 Temperature 98.0 F 98.0 F Temperature Source Oral Pulse Rate 76 Pulse Rate [Right Brachial] 76 Respiratory Rate 19 19 Blood Pressure 136/84 Blood Pressure [Right Arm] 136/84 Blood Pressure Mean [Right Arm] 101 Blood Pressure Source [Right Arm] Automatic Cuff Blood Pressure Position [Right Arm] Sitting 02 Sat by Pulse Oximetry 99 Oxygen Delivery Method Room Air - Lab Data Lab results reviewed: Yes: I reviewed the patient's lab results. Lab Results 07/02/21 16:58: Influenza Type A Ag Negative, Influenza Type B Ag Negative Orders (Tests/Meds): ED MEDICATIONS Discontinued Medications Generic Name Dose Route Start Last Admin Trade Name [place] PRN Reason Stop Dose Admin Ketorolac Tromethamine 30 mg 07/02/21 17:15 07/02/21 17:21 Ketorolac 60mg/2ml Vial IM 07/02/21 17:16 30 mg ONCE ONE Administration Ondansetron HCl 4 mg 07/02/21 17:15 07/02/21 17:20 Ondansetron 4mg Odt SL 07/02/21 17:16 4 mg ONCE ONE Administration ORDERS Category Date Time Status Covid-19 Nasal PCR ([facility]) Routine Lab 07/02/21 16:42 Received Medical Decision Narrative: Patient reports that she has her tubes tied denies chance of [facility] [place] HPI - General Stated complaint: covid test Time Seen by Provider: 07/02/21 17:09 Mode of Arrival: Ambulatory Source of Information: Patient Limitations: No Limitations Description of Symptoms (Recalled from Triage Doc. by RN): PATIENT C/O VOMITING, BODY ACHES, HEADACHE AND FEVER X 2 DAYS. REQUESTING COVID TEST HEENT Symptoms (Recalled from RN notes): Yes Resp Symptoms (Recalled from RN notes): No Skin Symptoms (Recalled from RN notes): No MS Symptoms (Recalled from RN notes): No Functional Status (Recalled from RN notes): WNL - History of Present Illness Provider Complaint: Patient states that she hasnt felt well for several days states that she has been having fever, vomiting, body aches and headache States that she wasnt sure if she may have COVID or the flu States that she does have a history of Migraines and sometimes they can make her feel like this way - Related Data Home Medications Medication Instructions Recorded Confirmed Buprenorphine HCl/Naloxone HCl 1.5 tab SL DAILY 06/28/19 03/16/20 [Buprenorphin-Naloxon 8-2 mg Sl] Previous Rx's Medication Instructions Recorded amitriptyline 10 mg tablet See Rx Instructions PO HS #60 tab 03/16/20 sumatriptan succinate 100 mg tablet See Rx Instructions PO .COMPLEX 03/16/20 #10 tab Ondansetron [Zofran 4mg ODT] 4 mg PO Q8HP PRN #12 tab.rapdis 04/04/20 Azithromycin [Z-Harry 250mg Tab*] 250 mg PO UD DOSE PK #6 tab 04/26/20 Cetirizine HCl [Zyrtec] 10 mg PO DAILY 30 Days #30 cap 04/26/20 Ondansetron [Zofran 4mg ODT] 4 mg PO Q8HP PRN #12 tab.rapdis 08/22/20 Mupirocin [Bactroban 2% Ointment 1 applicatio TP TID 7 Days #1 tube 10/31/20 22gm tube] cephALEXin [cephALEXin 500mg 500 mg PO Q6H 10 Days #40 cap 10/31/20 capsule] Albuterol Sulfate [Albuterol 6.7 gm IH Q4HP PRN 30 Days #1 each 12/30/20 Sulfate Hfa] Azithromycin [Z-Harry 250mg Tab] 250 mg PO DIRECTED #6 tab 12/30/20 guaiFENesin [Mucinex 600mg tablet] 600 mg PO BID 10 Days #20 tab 12/07
[2021-07-02 17:21] VITALS: BP 136/84; PULSE 76; RESP 19; TEMP 36.7; O2SAT 99
== END 2021-07-02 18:02 | disposition home or self-care (01) ==
PROVIDERS: Emergency Provider Nurse Practitioner; PCP Nurse Practitioner Family
DX: B34.9 Viral infection, unspecified (principal); G43.909 Migraine, unspecified, not intractable, without status migrainosus; F41.9 Anxiety disorder, unspecified; F17.210 Nicotine dependence, cigarettes, uncomplicated; Z79.51 Long term (current) use of inhaled steroids; Z79.52 Long term (current) use of systemic steroids; Z80.9 Family history of malignant neoplasm, unspecified; Z82.5 Family history of asthma and other chronic lower respiratory diseases
CPT/HCPCS: 87804; 96372; 99213; C9803; G0463; U0003; U0005

== ENCOUNTER → 2022-01-22 09:15 | Outpatient (CLI) | payer OTHER, SELFPAY ==
[2022-01-22 13:04] LABS: Basophils # 0.1 K/mm3 (0-0.2); Basophils % 0.8 % (0.1-2.0); Eosinophils # 0.1 K/mm3 (0.0-0.4); Hematocrit 44.9 % (37.0-47.0); Lymphocytes # 1.5 K/mm3 (0.7-4.5); Lymphocytes % 26.1 % (10-50); Mean Corpuscular HGB Conc 33.4 g/dL (31.8-35.4); Mean Corpuscular Hemoglobin 29.2 pg (27.0-31.2); Mean Corpuscular Volume 87.4 fl (81-99); Mean Platelet Volume 8.5 fl (7.4-10.4); Monocytes # 0.3 K/mm3 (0.1-1.0); Monocytes % 4.7 % (1.7-9.3); Neutrophils % 67.4 % (37.0-80.0); Platelet Count 237 K/mm3 (142-424); Red Blood Count 5.13 M/mm3 (4.20-5.40); Red Cell Distribution Width 14.4 % (11.5-17.5); White Blood Count 5.9 K/mm3 (4.8-10.8)
[2022-01-22 13:05] LABS: Chloride 107 mmol/L (98-107); Potassium 4.1 mmoL/L (3.5-5.1); Sodium 140 mmol/L (136-145)
[2022-01-22 13:08] LABS: Alanine Aminotransferase 39 U/L (12-78); Albumin Level 4.6 g/dl (3.5-5.0); Albumin/Globulin Ratio 1.5 (1.1-1.8); Alkaline Phosphatase 72 U/L (38-126); Anion Gap 14.1 mEq/L (5-15); Aspartate Amino Transferase 42 U/L (14-36); Bilirubin,Total 0.6 mg/dl (0.2-1.3); Blood Urea Nitrogen 12 mg/dl (7-17); Calcium 9.2 mg/dl (8.4-10.2); Carbon Dioxide 23 mmol/L (22.0-30.0); Estimated Glomerular Filt Rate 99 ml/min (>60); GFR (African American) 120 ML/MIN (>60); Globulin 3.1 g/dL (1.3-3.2); Glucose 91 mg/dl (74-100); Total Protein,Serum 7.7 g/dl (6.3-8.2)
[2022-01-23 08:16] LABS: FSH 2.2 mIU/mL (.)
[2022-01-23 10:41] LABS: HIV Screen 4th Generation wRfx Non Reactive (Non Reactive)
[2022-01-23 12:31] LABS: Hepatitis B Surface Antigen Negative (Negative); Hepatitis C Antibody >11.0 s/co ratio (0.0-0.9)
[2022-01-23 13:10] LABS: Hep A Ab, Total Positive (Negative); Hep B Core Ab, Total Positive (Negative); Hep B Surface Ab, Qual Non Reactive (.)
[2022-01-24 03:49] LABS: ALT (SGPT) P5P 38 IU/L (0-40); Alpha 2-Macroglobulins, Qn 265 mg/dL (110-276); Apolipoprotein A-1 132 mg/dL (116-209); Bilirubin, Total 0.5 mg/dL (0.0-1.2); Fibrosis Score 0.16 (0.00-0.21); GGT 18 IU/L (0-60); Haptoglobin 135 mg/dL (33-278); Necroinflammat Activity Grade A0-A1 (.); Necroinflammat Activity Score 0.17 (0.00-0.17)
[2022-01-25 21:30] LABS: HCV Genotype Charge YES; Hepatitis C Genotype 3 (.)
== END ==
PROVIDERS: PCP Nurse Practitioner Family; Visit Provider Nurse Practitioner Family
DX: R53.83 Other fatigue (principal); B34.8 Other viral infections of unspecified site; F41.9 Anxiety disorder, unspecified; F32.A Depression, unspecified; B18.2 Chronic viral hepatitis C; Z11.4 Encounter for screening for human immunodeficiency virus [HIV]
CPT/HCPCS: 80053; 81596; 83001; 85025; 86703; 86704; 86706; 86708; 87340; 87380; 87522; 87902; G0432

== ENCOUNTER → 2023-01-03 15:25 | Outpatient (CLI) | payer OTHER, SELFPAY ==
[2023-01-03 16:11] LABS: Hematocrit 43.4 % (37.0-47.0); Hemoglobin 14.4 g/dL (12.2-16.2); Mean Corpuscular HGB Conc 33.1 g/dL (31.8-35.4); Mean Corpuscular Hemoglobin 29.6 pg (27.0-31.2); Mean Corpuscular Volume 89.6 fl (81-99); Platelet Count 226 K/mm3 (142-424); Red Blood Count 4.85 M/mm3 (4.20-5.40); Red Cell Distribution Width 13.2 % (11.5-17.5); White Blood Count 8.1 K/mm3 (4.8-10.8)
[2023-01-03 16:17] LABS: Chloride 104 mmol/L (98-107); INR 1.01 (0.9-1.1); Prothrombin Time 10.9 seconds (10.1-12.5)
[2023-01-03 16:18] LABS: Potassium 4.5 mmoL/L (3.5-5.1); Sodium 138 mmol/L (136-145)
[2023-01-03 16:20] LABS: Alanine Aminotransferase 58 U/L (12-78); Aspartate Amino Transferase 43 U/L (14-36); Blood Urea Nitrogen 15 mg/dl (7-17); Estimated Glomerular Filt Rate 74 ml/min (>60); GFR (African American) 89 ML/MIN (>60); HCG Qualitative, Serum Negative (Negative)
[2023-01-03 16:21] LABS: Albumin Level 4.5 g/dl (3.5-5.0); Albumin/Globulin Ratio 1.5 (1.1-1.8); Alkaline Phosphatase 59 U/L (38-126); Anion Gap 11.5 mEq/L (5-15); Bilirubin,Total 0.8 mg/dl (0.2-1.3); Calcium 9.5 mg/dl (8.4-10.2); Carbon Dioxide 27 mmol/L (22.0-30.0); Globulin 3.1 g/dL (1.3-3.2); Glucose 91 mg/dl (74-100); Total Protein,Serum 7.6 g/dl (6.3-8.2)
[2023-01-05 11:09] LABS: Hep A Ab, Total Positive (Negative); Hep B Core Ab, Total Negative (Negative); Hep B Surface Ab, Qual Non Reactive (.)
[2023-01-07 20:09] LABS: HCV Genotype Charge YES; Hepatitis C Genotype 3 (.)
[2023-01-12 11:29] LABS: Fibrosis Score 0.12; Fibrosis Stage F0 NO FIBROSIS
[2023-01-12 11:30] LABS: Alpha 2-Macroglobulins, Qn 274; Haptoglobin 138; Necroinflammat Activity Grade A0-A1; Necroinflammat Activity Score 0.25
[2023-01-12 11:31] LABS: Apolipoprotein A-1 185; Bilirubin, Total 0.5
[2023-01-12 11:32] LABS: ALT (SGPT) P5P 53; GGT 31
[2023-01-13 09:09] LABS: Hepatitis B Surface Antigen Negative (Negative)
== END ==
PROVIDERS: PCP Nurse Practitioner Family; Visit Provider Nurse Practitioner Acute Care
DX: B18.2 Chronic viral hepatitis C (principal); K76.9 Liver disease, unspecified; F19.91 Other psychoactive substance use, unspecified, in remission; K59.00 Constipation, unspecified; Z59.82 Transportation insecurity
CPT/HCPCS: 36415; 80053; 81596; 84703; 85014; 85018; 85048; 85049; 85610; 86704; 86706; 86708; 87340; 87350; 87522; 87902

== ENCOUNTER → 2023-01-16 15:13 | Outpatient (CLI) | payer OTHER, SELFPAY ==
[2023-01-16 16:47] LABS: HCG Qualitative, Serum Negative (Negative)
[2023-01-18 09:47] LABS: HIV Screen 4th Generation wRfx Non Reactive (Non Reactive)
== END ==
PROVIDERS: PCP Nurse Practitioner Family; Visit Provider Nurse Practitioner Acute Care
DX: B19.20 Unspecified viral hepatitis C without hepatic coma (principal)
CPT/HCPCS: 36415; 84703; 86703; G0432

== ENCOUNTER 2023-02-11 15:41 | Emergency (ER) | payer OTHER, SELFPAY ==
[2023-02-11 15:50] VITALS: BP 148/86; PULSE 83; RESP 18; TEMP 36.7; O2SAT 99; BMI 29.1
--- NOTE | 2023-02-11 16:10 | EXP.UTC ---
Discharge Plan Disposition Patient Disposition: Home, Self-Care Condition: Good Prescriptions Prescriptions: New amoxicillin 500 mg capsule 500 mg PO BID 10 Days Qty: 20 0RF No Action sofosbuvir-velpatasvir 400-100 mg Tablet 1 tab PO DAILY Referrals Follow up/Referrals: Hiren Mandujano APRN [Primary Care Provider] - See instructions Activity Restrictions/Add. Instructions Additional Instructions/Restrictions: *Monitor Temp, Over the counter Motrin or Tylenol as directed/as needed Tylenol every 4 hours and Motrin every 6 hours (as long as your family doctor has told you that you can take it) for fever or pain. and straight to ER if unable to lower temp less than 101.0 after medication given *Warm salt water gargles may help to soothe the throat *Throat Lozenges? *Warm fluids like tea with honey may help to soothe the throat? *Sleep elevated *Humidifier/Vaporizer Your throat swab was sent for culture. Those results are typically sent to your primary care. Be sure to follow up in 2-3 days with your family doctor/primary care physician if no improvement so they can review those result and treat if necessary. If you don?t have a primary care doctor, I recommend you get one but in the mean time, you will have to return to a walk in clinicFollow up IMMEDIATELY for new or worsening symptoms or no Noticeable improvement over the next 48-72 hours. 911 for difficulty breathing or swallowing Clinical Impressions Clinical Impression: Pharyngitis Qualifiers: Pharyngitis/tonsillitis etiology: unspecified etiology Qualified Code(s): J02.9 - Acute pharyngitis, unspecified Instructions Patient Instructions: Sore Throat, Cough Discharge ED Provider: Isa Lowry [facility] General Stated complaint: sore throat, HOFF Mode of Arrival: Ambulatory Source of Information: Patient Limitations: No Limitations Time Seen by Provider: 02/11/23 16:10 Description of Symptoms (Recalled from Triage Doc. by RN): sore throat, chills, HOFF, low fever, body aches, and cough HEENT Symptoms (Recalled from RN notes): Yes Resp Symptoms (Recalled from RN notes): No Skin Symptoms (Recalled from RN notes): No MS Symptoms (Recalled from RN notes): No Functional Status (Recalled from RN notes): n/a History of Present Illness Provider Complaint: Patient states that her kids have had strep throat and now she is having sore throat, headache, fever, chills and body aches States that today her throat was hurting worse so she came in to get checked Related Data Home Medications Medication Instructions Recorded Confirmed sofosbuvir 400 mg-velpatasvir 100 1 tab PO DAILY 02/11/23 02/11/23 mg tablet Previous Rx's Medication Instructions Recorded amoxicillin 500 mg capsule 500 mg PO BID 10 days #20 caps 02/11/23 Allergies Allergy/AdvReac Type Severity Reaction Status Date / Time No Known Allergies Allergy Verified 02/11/23 16:06 Worker's Comp Is this a Worker's Comp case?: No [facility] Disclaimer: The information contained in this section may have been updated after the patient was seen, as this information can be updated by other users. Medical History (Updated 02/11/23 @ 16:19 by Isa oLwry APRN) Migraines Social History Smoking Status: Current every day smoker tobacco type: cigarettes packs per day: 1 second hand exposure: No alcohol intake: never substance use type: former substance user, marijuana and crack/cocaine current occupational status: other Travel in the last 8 weeks: None household members: family and children housing: house ROS Obtained: Yes All systems reviewed & no additional complaints except as documented and Yes Systems reviewed as appropriate & no additional complaints except as documented Constitutional Constitutional: Reports system reviewed and no additional complaints, except as documen
[2023-02-11 16:28] VITALS: BP 148/86; PULSE 83; RESP 18; TEMP 36.7; O2SAT 99
[2023-02-11 16:42] LABS: UTC Strep Screen (Rapid) Positive (Negative)
== END 2023-02-11 16:28 | disposition home or self-care (01) ==
PROVIDERS: Emergency Provider Nurse Practitioner; PCP Nurse Practitioner Family
DX: J02.0 Streptococcal pharyngitis (principal); R51.9 Headache, unspecified; R05.9 Cough, unspecified; F17.210 Nicotine dependence, cigarettes, uncomplicated
CPT/HCPCS: 87880; 99212; 99214; G0463

== ENCOUNTER → 2023-03-20 13:33 | Outpatient (CLI) | payer OTHER, SELFPAY ==
[2023-03-20 12:28] LABS: Microscopic, Urine URINE MICROSCOPIC (MICROSCOPIC)
[2023-03-20 12:46] LABS: Basophils % 0.4 % (0.1-2.0); Eosinophils % 0.4 % (0.1-12.0); Hemoglobin 13.8 g/dL (12.2-16.2); Lymphocytes # 1.7 K/mm3 (0.7-4.5); Lymphocytes % 20.3 % (10-50); Mean Corpuscular HGB Conc 33.6 g/dL (31.8-35.4); Mean Corpuscular Hemoglobin 30.8 pg (27.0-31.2); Mean Corpuscular Volume 91.7 fl (81-99); Mean Platelet Volume 7.6 fl (7.4-10.4); Monocytes # 0.2 K/mm3 (0.1-1.0); Monocytes % 2.5 % (1.7-9.3); Neutrophils # 6.5 K/mm3 (1.8-7.8); Neutrophils % 76.4 % (37.0-80.0); Platelet Count 229 K/mm3 (142-424); Red Blood Count 4.47 M/mm3 (4.20-5.40); Red Cell Distribution Width 13.2 % (11.5-17.5); White Blood Count 8.5 K/mm3 (4.8-10.8)
[2023-03-20 13:43] LABS: Alanine Aminotransferase 19 U/L (12-78); Albumin Level 4.4 g/dl (3.5-5.0); Albumin/Globulin Ratio 1.6 (1.1-1.8); Alkaline Phosphatase 52 U/L (38-126); Anion Gap 10.3 mEq/L (5-15); Aspartate Amino Transferase 29 U/L (14-36); Bilirubin,Total 0.3 mg/dl (0.2-1.3); Blood Urea Nitrogen 17 mg/dl (7-17); Calcium 8.8 mg/dl (8.4-10.2); Carbon Dioxide 28 mmol/L (22.0-30.0); Chloride 104 mmol/L (98-107); Chol/HDL Ratio 2.8 (1-3.5); Cholesterol 222 mg/dl (140-200); Estimated Glomerular Filt Rate 74 ml/min (>60); GFR (African American) 89 ML/MIN (>60); Globulin 2.8 g/dL (1.3-3.2); Glucose 91 mg/dl (74-100); HDL Cholesterol 79 mg/dl (40-60); Potassium 4.3 mmoL/L (3.5-5.1); Sodium 138 mmol/L (136-145); Total Protein,Serum 7.2 g/dl (6.3-8.2); Triglycerides 73 mg/dl (30-150); VLDL Cholesterol 15 mg/dL (0-40)
[2023-03-20 13:59] LABS: Free T4 (Free Thyroxine) 1.13 ng/dl (0.78-2.19)
[2023-03-20 14:02] LABS: Appearance,Urine CLEAR (Clear); Bilirubin,Urine Negative (Negative); Blood, Urine 2+ (Negative); Color,Urine YELLOW (Yellow); Glucose,Urine (UA) Negative (Negative); Ketones,Urine Negative (Negative); Leukocyte Esterase,Urine Negative (Negative); Nitrate,Urine Negative (Negative); Protein,Urine Negative (Negative); Specific Gravity, Urine >= 1.030 (1.005-1.030); Urobilinogen,Urine 0.2 EU/dl (0.2)
[2023-03-20 14:04] LABS: 25-OH Vitamin D, Total 33.5 ng/mL (30-100)
[2023-03-20 14:16] LABS: Thyroid Stimulating Hormone 0.92 uIU/mL (0.465-4.68)
[2023-03-20 14:35] LABS: Vitamin B12 377 pg/mL (239-931)
[2023-03-20 15:03] LABS: Bacteria,Urine Trace /lpf
[2023-03-20 15:28] LABS: Hemoglobin A1C 4.8 % (4.0-6.0)
== END ==
PROVIDERS: PCP Nurse Practitioner Family; Visit Provider Nurse Practitioner Family
DX: Z00.00 Encounter for general adult medical examination without abnormal findings (principal); R53.83 Other fatigue; Z13.1 Encounter for screening for diabetes mellitus; Z13.220 Encounter for screening for lipoid disorders; B96.89 Other specified bacterial agents as the cause of diseases classified elsewhere; Z79.899 Other long term (current) drug therapy
CPT/HCPCS: 80053; 80061; 81001; 82306; 82607; 83036; 84439; 84443; 85025; 87086

== ENCOUNTER 2023-06-06 13:27 | Emergency (ER) | payer OTHER, SELFPAY ==
[2023-06-06 13:50] VITALS: BP 113/77; PULSE 64; RESP 20; TEMP 36.8; O2SAT 99; BMI 30.9
--- NOTE | 2023-06-06 14:00 | ED_ITS ---
Discharge Plan Disposition Patient Disposition: Home, Self-Care Condition: Good Prescriptions Prescriptions: New amoxicillin [amoxicillin] 875 mg tablet 875 mg PO Q12H Qty: 20 0RF methylprednisolone 4 mg Tablets,Dose Pack 4 mg PO DIRECTED 6 Days Qty: 21 0RF Rx Instructions: Take 1 pack as directed for 6 days [id number] [Bromfed DM] 2-30-10 mg/5 mL Syrup 5 ml PO Q6H PRN (Reason: Cough) Qty: 240 0RF No Action desvenlafaxine succinate [Pristiq] 25 mg tablet extended release 24 hr 25 mg PO DAILY Qty: 90 1RF Referrals Follow up/Referrals: Ifrah Dsouza APRN [Primary Care Provider] - See instructions Activity Restrictions/Add. Instructions Additional Instructions/Restrictions: rink plenty of fluids. Take tylenol or ibuprofen for pain or fever. Take the medications as directed. Follow up with your regular doctor. GO TO THE ER FOR ANY WORSENING SYMPTOMS Clinical Impressions Clinical Impression: Sinusitis Instructions Patient Instructions: Sinusitis, DI for Sinusitis Discharge ED Provider: Terry Kelly [facility] General Stated complaint: sore throat, migraine, body aches Time Seen by Provider: 06/06/23 14:00 History of Present Illness Provider Complaint: She states that she has had sinus congestion, headache, sore throat, and cough for the past 2 days. Related Data Previous Rx's Medication Instructions Recorded desvenlafaxine succinate 25 mg 25 mg PO DAILY #90 tabs 03/20/23 tablet,extended release 24 hr (Pristiq) amoxicillin 875 mg tablet 875 mg PO Q12H #20 tabs 06/06/23 ajnxhodxjbcsqoi-bjzqgqlwcawfaax-EB 5 ml PO Q6H PRN Cough #240 mL 06/06/23 2 mg-30 mg-10 mg/5 mL oral syrup (Bromfed DM) methylprednisolone 4 mg tablets in 4 mg PO DIRECTED 6 days #21 tabs 06/06/23 a dose pack Allergies Allergy/AdvReac Type Severity Reaction Status Date / Time No Known Allergies Allergy Verified 03/20/23 10:02 [facility] Disclaimer: The information contained in this section may have been updated after the patient was seen, as this information can be updated by other users. Medical History (Updated 06/06/23 @ 14:42 by Terry Kelly APRN) Abdominal pain Anxiety Anxiety and depression Bacterial conjunctivitis Bronchitis Crushing injury of finger of left hand Diarrhea Encounter for laboratory testing for COVID-19 virus Exposure to COVID-19 virus Femur fracture, right Headache IV drug abuse Migraines Nail bed injury Nausea Pharyngitis Right otitis media Sinusitis Viral syndrome Viral upper respiratory tract infection with cough Surgical History (Updated 03/22/23 @ 15:59 by Ifrah Dsouza APRN) History of partial splenectomy History of placement of ear tubes Hx of tubal ligation Family History (Updated 03/22/23 @ 15:56 by Ifrah Dsouza APRN) Mother Cancer Early onset menopause Grandmother Cancer, Onset Age: 26 Grandfather Cancer Other Anemia Asthma FHx: mental illness Heart attack No significant family history Substance abuse Social History (Updated 03/22/23 @ 16:00 by Ifrah Dsouza APRN) Smoking Status: Current every day smoker tobacco type: e-cigarettes second hand exposure: No alcohol intake: never substance use type: former substance user, marijuana and crack/cocaine current occupational status: other Travel in the last 8 weeks: None household members: family and children housing: house ROS Obtained: Yes All systems reviewed & no additional complaints except as documented Constitutional Constitutional: Reports poor appetite Eyes Eyes: Reports system reviewed and no additional complaints, except as documented ENT Ears, Nose, Mouth, and Throat: Reports as per HPI Cardiovascular Cardiovascular: Reports system reviewed and no additional complaints, except as documented and Denies chest pain Respiratory Respiratory: Denies shortness of breath, Reports chest congestion, Reports cough, Denies stridor and Denies wheezing Gastrointestinal Gastrointestingal: Reports system reviewed and no additional complaints, except as documented; Denies abdominal pain, diarrhea or vomiting Musculoskeletal Musculoskeletal: Reports system reviewed and no additional complaints, except as documented and Denies arthralgias Integumentary/Breasts Skin/Breast: Reports system reviewed and no additional complaints, except as documented and Denies rash Neurologic Neurologic: Denies paresthesias Allergic/Immunologic Allergic/Immunologic: Denies wheezing Physical Exam General General appearance: alert and in no apparent distress Eye Eye exam: Present normal appearance, PERRL and EOMI ENT ENT exam: Present mucous membranes moist and normal external ear exam Expanded ENT Exam External ear exam: Present normal external inspection TM/Canal exam: Bilateral TM: erythema and bulging Nose exam: Absent sinus tenderness Nasal speculum exam: Bilateral: normal Mouth exam: Present normal external inspection; Absent drooling Teeth exam: Present normal inspection Throat exam: Present tonsillar erythema and tonsillomegaly Neck Neck exam: Present normal inspection, full ROM and trachea midline; Absent tenderness, lymphadenopathy or thyromegaly Chest Chest inspection: Present normal inspection and symmetric chest wall rise; Absent tenderness or rash Respiratory Respiratory exam: Present normal lung sounds bilaterally; Absent respiratory distress, wheezes, stridor or accessory muscle use Cardiovascular Cardiovascular exam: Present regular rate, normal rhythm and normal heart sounds Abdominal Exam Abdominal exam: Present soft; Absent distention, tenderness, guarding, rebound or rigidity Extremities Exam Extremities exam: Present normal inspection, full ROM and normal capillary refill; Absent tenderness or calf tenderness Back Exam Back exam: Present normal inspection and full ROM; Absent tenderness Neurological Exam Neurological exam: Present alert and oriented X3 Psychiatric Psychiatric exam: Present normal affect and normal mood Skin Skin exam: Present warm, dry, intact and normal color Lymphatic Lymphatic Findings: no adenopathy Medical Decision Making Medical Records Medical records reviewed: No I reviewed the patient's medical records. Christian Inquiry Pt receiving controlled substance: No
[2023-06-06 14:13] LABS: UTC Strep Screen (Rapid) Negative (Negative)
[2023-06-06 14:14] LABS: UTC Influenza A Antigen Negative (Negative); UTC Influenza B Antigen Negative (Negative)
[2023-06-06 14:48] VITALS: BP 113/77; PULSE 64; RESP 20; TEMP 36.8; O2SAT 99
== END 2023-06-06 14:50 | disposition home or self-care (01) ==
PROVIDERS: Emergency Provider Nurse Practitioner Family; PCP Nurse Practitioner Family
DX: J01.90 Acute sinusitis, unspecified (principal); R51.9 Headache, unspecified; R05.9 Cough, unspecified; R07.0 Pain in throat; R09.81 Nasal congestion; F17.290 Nicotine dependence, other tobacco product, uncomplicated
CPT/HCPCS: 87804; 87880; 99212; 99214; G0463

== ENCOUNTER 2023-07-11 15:22 | Outpatient (CLI) | payer OTHER, SELFPAY ==
[2023-07-11 16:00] LABS: Hematocrit 40.7 % (37.0-47.0); Hemoglobin 13.3 g/dL (12.2-16.2); Mean Corpuscular HGB Conc 32.6 g/dL (31.8-35.4); Mean Corpuscular Hemoglobin 30.6 pg (27.0-31.2); Mean Corpuscular Volume 93.8 fl (81-99); Platelet Count 258 K/mm3 (142-424); Red Blood Count 4.34 M/mm3 (4.20-5.40); Red Cell Distribution Width 13.8 % (11.5-17.5); White Blood Count 7.1 K/mm3 (4.8-10.8)
[2023-07-11 16:14] LABS: INR 0.99 (0.9-1.1); Prothrombin Time 10.7 seconds (10.1-12.5)
[2023-07-11 17:15] LABS: Chloride 108 mmol/L (98-107); Potassium 4.5 mmoL/L (3.5-5.1); Sodium 139 mmol/L (136-145)
[2023-07-11 17:18] LABS: Alanine Aminotransferase 20 U/L (12-78); Albumin Level 4.1 g/dl (3.5-5.0); Albumin/Globulin Ratio 1.7 (1.1-1.8); Alkaline Phosphatase 55 U/L (38-126); Anion Gap 6.5 mEq/L (5-15); Aspartate Amino Transferase 29 U/L (14-36); Bilirubin,Total 0.4 mg/dl (0.2-1.3); Blood Urea Nitrogen 20 mg/dl (7-17); Carbon Dioxide 29 mmol/L (22.0-30.0); Estimated Glomerular Filt Rate 65 ml/min (>60); GFR (African American) 79 ML/MIN (>60); Globulin 2.4 g/dL (1.3-3.2); Total Protein,Serum 6.5 g/dl (6.3-8.2)
[2023-07-11 17:19] LABS: Calcium 9.6 mg/dl (8.4-10.2); Glucose 97 mg/dl (74-100)
== END 2023-07-11 23:59 ==
LOC: LAB 15:23
PROVIDERS: PCP Nurse Practitioner Family; Visit Provider Nurse Practitioner Acute Care
DX: B19.20 Unspecified viral hepatitis C without hepatic coma (principal)
CPT/HCPCS: 36415; 80053; 85014; 85018; 85048; 85049; 85610; 87522

== ENCOUNTER 2023-07-18 13:10 | Outpatient (CLI) | payer OTHER, SELFPAY ==
--- NOTE | 2023-07-18 13:10 | US_ITS ---
PROCEDURE INFORMATION: Exam: US Left Breast, Complete US Right Breast, Complete Exam date and time: 07/18/2023 3:05 PM Age: 32 years old Clinical indication: Breast pain; Bilateral TECHNIQUE: Imaging protocol: Complete ultrasound of all four quadrants of the left breast and the retroareolar regions, including ultrasound of the axilla when performed. Complete ultrasound of all four quadrants of the right breast and the retroareolar regions, including ultrasound of the axilla when performed. COMPARISON: No relevant prior studies available. FINDINGS: ULTRASOUND: Breast ultrasound findings: Sonographic images of both breasts including the retroareolar regions, all 4 quadrants and the axilla demonstrates an ovoid hypoechoic solid mass in the left 12 o'clock axis 4 cm from the nipple measuring 0.5 x 0.2 x 0.4 cm in dimension. Few scattered subcentimeter cysts are noted bilaterally. There is a probable cluster of subcentimeter cysts with a combined dimension of 0.6 x 0.4 cm and the left 3 o'clock axis 4 cm from the nipple. No architectural distortion or acoustical shadowing. No skin thickening or axillary adenopathy. Fat containing and normal-appearing axillary lymph nodes. IMPRESSION: 1. Probably benign cystic change in the left 3 o'clock axis. 2. Probably benign subcentimeter mass in the left 12 o'clock axis. 3. A six-month follow-up targeted left breast ultrasound is recommended to ensure stability over time ASSESSMENT: BI-RADS Category 3: Probably benign.
--- NOTE | 2023-07-18 13:10 | US_ITS ---
PROCEDURE: US TRANSVAGINAL CLINICAL INDICATION: menorrhagia COMPARISON: No exams were available for comparison FINDINGS: Transvaginal and transabdominal sonographic images of the pelvis were obtained. UTERUS: 9.9 cm x 4.7 cmx 5.0cm anteverted with a combined endometrial thickness of 11.8mm. There are several small nabothian cysts in the cervix. The largest is 0.6 cm. There is a small 1.2 mm hyperechoic area in the anterior endometrial basalis. LEFT OVARY: Not visualized, possibly surgically absent. RIGHT OVARY: 4.2cmx 3.1cmx2.9 cm with a volume of 19.6ml. There is a follicle measuring 2.4 cm x 0 2.1 cm x 1.8 cm. The right ovary is seen and appears normal. Doppler flow to the right ovary is seen. There is no fluid in the cul-de-sac. IMPRESSION: 1. Anteverted uterus normal in shape and size. 2. The endometrium appears trilaminar and there is a small calcification in the anterior endometrium. 3. The left ovary is not visualized today. 4. The right ovary appears normal and has a 2.4 cm follicle. 5. No fluid in the cul-de-sac. Dictated by: Nico Eduardo MD 07/19/2023 09:36 Nico Eduardo MD in OV 07/19/2023 09:36
[2023-07-18 14:21] LABS: Basophils % 0.6 % (0.1-2.0); Eosinophils % 0.6 % (0.1-12.0); Hematocrit 42.8 % (37.0-47.0); Hemoglobin 13.8 g/dL (12.2-16.2); Lymphocytes # 1.6 K/mm3 (0.7-4.5); Lymphocytes % 23.3 % (10-50); Mean Corpuscular HGB Conc 32.1 g/dL (31.8-35.4); Mean Corpuscular Hemoglobin 30.1 pg (27.0-31.2); Mean Corpuscular Volume 93.7 fl (81-99); Mean Platelet Volume 7.7 fl (7.4-10.4); Monocytes # 0.3 K/mm3 (0.1-1.0); Monocytes % 3.7 % (1.7-9.3); Neutrophils % 71.9 % (37.0-80.0); Platelet Count 215 K/mm3 (142-424); Red Blood Count 4.57 M/mm3 (4.20-5.40); Red Cell Distribution Width 13.6 % (11.5-17.5)
[2023-07-18 15:00] LABS: Thyroid Stimulating Hormone 0.79 uIU/mL (0.465-4.68)
== END 2023-07-18 23:59 | disposition home or self-care (01) ==
LOC: RAD 13:10
PROVIDERS: PCP Nurse Practitioner Family; Visit Provider Obstetrics & Gynecology
DX: N64.4 Mastodynia (principal); R59.9 Enlarged lymph nodes, unspecified; N92.0 Excessive and frequent menstruation with regular cycle
CPT/HCPCS: 36415; 76641; 76830; 84443; 85025

== ENCOUNTER 2023-08-25 14:42 | Outpatient (CLI) | payer OTHER, SELFPAY ==
[2023-08-25 15:34] LABS: Basophils % 0.5 % (0.1-2.0); Eosinophils # 0.1 K/mm3 (0.0-0.4); Hematocrit 38.7 % (37.0-47.0); Hemoglobin 12.9 g/dL (12.2-16.2); Lymphocytes # 1.9 K/mm3 (0.7-4.5); Lymphocytes % 25.9 % (10-50); Mean Corpuscular HGB Conc 33.3 g/dL (31.8-35.4); Mean Corpuscular Hemoglobin 30.5 pg (27.0-31.2); Mean Corpuscular Volume 91.8 fl (81-99); Mean Platelet Volume 7.6 fl (7.4-10.4); Monocytes # 0.3 K/mm3 (0.1-1.0); Monocytes % 4.5 % (1.7-9.3); Neutrophils % 68.1 % (37.0-80.0); Platelet Count 196 K/mm3 (142-424); Red Blood Count 4.22 M/mm3 (4.20-5.40); Red Cell Distribution Width 13.9 % (11.5-17.5); White Blood Count 7.4 K/mm3 (4.8-10.8)
[2023-08-25 16:15] LABS: Alanine Aminotransferase 19 U/L (12-78); Albumin/Globulin Ratio 1.5 (1.1-1.8); Alkaline Phosphatase 51 U/L (38-126); Anion Gap 11.5 mEq/L (5-15); Aspartate Amino Transferase 27 U/L (14-36); Bilirubin,Total 0.4 mg/dl (0.2-1.3); Blood Urea Nitrogen 17 mg/dl (7-17); Calcium 9.2 mg/dl (8.4-10.2); Carbon Dioxide 25 mmol/L (22.0-30.0); Chloride 104 mmol/L (98-107); Estimated Glomerular Filt Rate 84 ml/min (>60); GFR (African American) 101 ML/MIN (>60); Globulin 2.6 g/dL (1.3-3.2); Glucose 92 mg/dl (74-100); Potassium 4.5 mmoL/L (3.5-5.1); Sodium 136 mmol/L (136-145); Total Protein,Serum 6.6 g/dl (6.3-8.2)
[2023-08-25 16:48] LABS: HCG,Quantitative < 2 mIU/ml (0-5.42)
[2023-08-25 18:19] LABS: Amphetamine/Metha Screen,Urine Negative ng/ml (<1000); Barbiturates Screen,Urine Negative ng/ml (<200)
[2023-08-25 18:21] LABS: Benzodiazepines Screen,Urine Negative ng/ml (<200)
[2023-08-25 18:22] LABS: Cannabinoid Screen,Urine Positive ng/ml (<50)
[2023-08-25 18:23] LABS: Cocaine Screen,Urine Negative ng/ml (<300); Methadone Screen,Urine Negative ng/ml (<300)
[2023-08-25 18:24] LABS: Opiate Screen,Urine Negative ng/ml (<300); Phencyclidine Screen,Urine Negative ng/ml (<25)
== END 2023-08-25 23:59 | disposition home or self-care (01) ==
LOC: LAB 14:43
PROVIDERS: PCP Nurse Practitioner Family; Visit Provider Obstetrics & Gynecology
DX: Z01.818 Encounter for other preprocedural examination (principal); N92.0 Excessive and frequent menstruation with regular cycle
CPT/HCPCS: 36415; 80053; 80307; 84702; 85025

== ENCOUNTER 2023-08-27 06:04 | Day surgery (SDC) | payer OTHER, SELFPAY ==
[2023-08-25 12:06] VITALS: BMI 32.4
[2023-08-27] VITALS (11 sets, daily range): BP systolic 121–146; BP diastolic 66–96; PULSE 50–71; RESP 12–18; TEMP 36.4–36.7; O2SAT 94–99; BMI 32.4
[2023-08-27] MEDS: ACETAMINOPHEN 500MG TAB 1000 MG (06:38)
[2023-08-27] MEDS: LACTATED RINGERS 1000ML 1,000 ML 25 ML IV (06:39)
--- NOTE | 2023-08-27 07:00 | P.PNANES_ITS ---
[facility] Disclaimer: The information contained in this section may have been updated after the patient was seen, as this information can be updated by other users. Medical History Dysmenorrhea Increased risk of breast cancer Contact dermatitis Family history of breast cancer in first degree relative Urinary frequency Tenderness of left axilla Menorrhagia IV drug abuse Anxiety and depression Migraines Headache Surgical History History of surgery on lower extremity History of partial splenectomy History of placement of ear tubes Hx of tubal ligation Family History Mother Cancer breast Early onset menopause Grandmother Cancer, Onset Age: 26 breast Grandfather Cancer Colon and throat, at age 60s Other Anemia Asthma FHx: mental illness Heart attack No significant family history Substance abuse Social History (Updated 08/27/23 @ 06:20 by Gissel Guzman RN) Smoking Status: Current every day smoker tobacco type: e-cigarettes second hand exposure: No alcohol intake: never substance use type: former substance user, marijuana and crack/cocaine current occupational status: other Travel in the last 8 weeks: None household members: family and children housing: house [facility] Anesthesia Checklist Patient Identification Patient Identification: Verbal (Name & ) Structural Data Admitted From: Home Planned Operative Procedure/s: d/c hyst Consent for Planned Operative Procedure(s) Verified: Yes NPO Status Verified Time NPO: 00:00 Additional verifications Anesthesia Reactions: No Hx Blood Transfusions: No Blood Transfusion Reaction: No Airway Assessment Mallampati Score:: Class II C-Spine Mobility Assessed: Yes TMJ Mobility Assessed: Yes Dentition: Good Dentition Neurological Assessment Level of Consciousness: Awake, Alert and Appropriate Anesthesia Plan Anesthesia Risk discussed: Yes Anesthesia Plan: Verified ASA Class: II Anesthesia Type: General
[2023-08-27] MEDS: RINGERS SOLUTION,LACTATED 3,000 ML 100 ML IR (07:50)
--- NOTE | 2023-08-27 08:12 | EXP.ANES.I ---
[facility] Anesthesia Record Part I Anesthesia Record I Intake, IV Amount: 600 Hydration: Adequate Estimated blood loss (mL): 10 Urine output (mL): 0 Blood Products used (#): none Blood Pressure: 146/77 SaO2: 94 Pulse Rate: 69 Airway Patency: Patent Respiratory Rate: 16 Temperature: 97.6 F Patient is:: Awake (Talking) and Stable Stable to PACU at:: 08:14
--- NOTE | 2023-08-27 08:16 | EXP.OP.NOTE ---
Date of procedure: 08/27/23 Pre-op Diagnosis:: 1. Menorrhagia 2. Dysmenorrhea Post-op Diagnosis:: 1. Menorrhagia 2. Dysmenorrhea Procedure performed:: Hysteroscopy, Dilation and curettage, Novasure endometrial ablation Surgeon:: Maryann Moody DO Oyster Worker(s):: N/a MOBILE LOUNGE DRIVER:: Rosy Galdamez Anesthesia: GETA Estimated blood loss (mL): 5 Clinical Note:: Ms Shaylee Zepeda is a 33 yo [id number] who presents to [facility] for scheduled procedure. She complains of regular periods that are monthly but flow is extremely heavy and painful. Flow lasts about 5 days. LMP 08/03/23. She has history of tubal ligation. History of x 6. TSH 07/18/23 within normal limits. Pelvic ultrasound 07/18/23 was within normal limits. Operative findings:: 1. On bimanual exam, uterus normal size and shape, midposition 2. On hysteroscopic exam, bilateral tubal ostia easily visualized. No masses or lesions noted within the endometrial cavity. Grossly normal appearing endometrial tissue. Small amount of fluffy tissue at internal cervical os, possibly a small polyp Operative note:: Risks, benefits and alternatives were discussed with the patient. Risks include but are not limited to bleeding, infection, uterine perforation and VTE. Patient voiced understanding and agreed to proceed. She was wheeled back to the operating room and placed under general anesthesia without difficulty. She was placed in dorsal lithotomy position and prepped and draped in the normal sterile fashion. Straight catheter was used to drain the bladder. A bimanual exam was performed. A weighted Auvard was placed in the vaginal vault. Single tooth tenaculum was placed on anterior lip of the cervix. Uterus sounded to 8. Sequential Gold dilators were used to dilate the cervical os. Hysteroscope was tested inserted through the cervix without difficulty. Endometrial cavity was evaluated. See findings above. Pictures were taken. Hysteroscope was removed. Medium size sharp curette was inserted through the cervix into the uterine cavity. The endometrial cavity was curetted with a systematic [id number] movement of the curette so that all possible endometrium was sampled. Endometrial curettings will be sent to pathology for review. Novasure sure sound was used to obtain uterine length. Uterus measured 5 cm in length and 4.5 cm in cavity width. Novasure deviced was inserted and ablation was performed per protocol at a power of 124 w for 89 seconds. Novasure device was removed. Hysteroscope was reinserted and cavity revealed adequate burn and no uterine perforation. Hysteroscope was removed. Instruments were removed from the vagina. Tenaculum site was noted to be hemostatic. Patient was awaken from anesthesia without difficulty. She was transported to recovery room in stable condition. Patient will be discharged home when awake and ambulating. She was given postop instructions as well as instructions to follow-up in the office in 2 weeks at which time pathology will be reviewed. Condition: stable Disposition: same day Specimens:: 1. Endometrial curettings Complications:: None
[2023-08-27] MEDS: MORPHINE 2MG/ML SYRINGE 2 MG IV ×2 (08:22→08:31)
[2023-08-27] MEDS: OXYCODONE 5MG IMMEDIATE RELEASE TABLET 10 MG PO (09:21)
--- NOTE | 2023-08-27 09:29 | EXP.ACUTE.PN ---
Subjective *Date: 08/27/23 *Time: 09:29 Medical Exam Vital signs and Labs for Last 24 Hours: Vital Signs Temp Pulse Pulse Resp BP BP Pulse Ox 08/27/23 08:50 50 L 18 136/79 99 08/27/23 08:40 97.5 F L 60 18 141/92 H 98 08/27/23 08:40 71 12 126/88 99 08/27/23 08:30 53 L 12 130/74 98 08/27/23 08:20 56 L 12 131/70 97 08/27/23 08:13 97.6 F 69 16 146/77 H 08/27/23 08:10 97.6 F 60 18 146/77 H 97 08/27/23 06:20 98.1 F 61 18 121/66 98 O2 Del Method 08/27/23 08:50 Room Air 08/27/23 08:40 Room Air 08/27/23 08:40 08/27/23 08:30 08/27/23 08:20 Room Air 08/27/23 08:13 08/27/23 08:10 Room Air 08/27/23 06:20 Room Air Intake and Output 08/26/23 08/27/23 08/27/23 23:59 07:59 15:59 Intake Total 600 / 600 Balance 600 / 600 Intake: Intake, Total IV Amount 600 / 600 Other: Weight 195 lb Patient Weight 08/27/23 23:59 Weight 195 lb I & O for Labs for Last 24 Hours: Intake & Output 08/24/23 08/25/23 08/26/23 08/27/23 23:59 23:59 23:59 23:59 Intake Total 600 / 600 Balance 600 / 600 Weight 195 lb 195 lb
--- NOTE | 2023-08-27 12:22 | EXP.ANES.II ---
[facility] Anesthesia Record Part II Anesthesia Record Part II Discharge Time: 08:40 Destination: Surgical Day Care (OP Surgery) PACU nurse assessment reviewed?: Yes Patient Condition:: Good Anesthesia Complications:: None Swallowing reflex intact?: Yes Airway Patency: Patent Cyanosis?: No Blood Pressure: 126/88 SaO2: 99 Respiratory Rate: 12 Pulse Rate: 71 Temperature: 97.6 F Mental Status: Alert & Oriented Pain level:: 7 Nausea and/or vomitting:: None Intake, IV Amount: 600 Hydration: Adequate
== END 2023-08-27 09:20 | disposition home or self-care (01) ==
PROVIDERS: PCP Nurse Practitioner Family; Visit Provider Obstetrics & Gynecology
PROC: (CPT 58563; principal; 2023-08-27 07:30)
DX: N92.0 Excessive and frequent menstruation with regular cycle (principal); N94.6 Dysmenorrhea, unspecified
CPT/HCPCS: 58563; J2405

== ENCOUNTER 2024-02-01 09:19 | Emergency (ER) | payer OTHER, SELFPAY ==
[2024-02-01 09:20] VITALS: BP 146/84; PULSE 89; RESP 20; TEMP 36.9; O2SAT 99; BMI 33.3
[2024-02-01 09:23] VITALS: BP 146/84; PULSE 83; O2SAT 100
--- NOTE | 2024-02-01 09:24 | XR_ITS ---
PROCEDURE INFORMATION: Exam: XR Right Wrist Exam date and time: 02/01/2024 9:33 AM Age: 33 years old Clinical indication: Injury or trauma; Fall; Blunt trauma (contusions or hematomas); Wrist; Right TECHNIQUE: Imaging protocol: Radiologic exam of the right wrist. Views: 3 or more views. COMPARISON: No relevant prior studies available. FINDINGS: Bones/joints: Minimally displaced oblique fracture lateral aspect distal radius with articular extension. Soft tissues: Soft tissue swelling. IMPRESSION: Minimally displaced oblique fracture lateral aspect distal radius with articular extension.
[2024-02-01] MEDS: ACETAMINOPHEN 500MG TAB 1000 MG PO (09:27)
[2024-02-01] MEDS: IBUPROFEN 600 MG TABLET PO (09:27)
--- NOTE | 2024-02-01 09:28 | ED_ITS ---
Discharge Plan Disposition Patient Disposition: Home, Self-Care Prescriptions Prescriptions: New oxycodone 5 mg tablet 5 mg PO TID PRN (Reason: pain (scale score 7-10)) Qty: 9 0RF No Action desvenlafaxine succinate [Pristiq] 25 mg tablet extended release 24 hr 25 mg PO DAILY Qty: 90 1RF ibuprofen 800 mg tablet 800 mg PO Q8H PRN (Reason: pain) Qty: 20 0RF hydrocodone-acetaminophen 5-325 mg tablet 1 tab PO Q6H PRN (Reason: pain) Qty: 10 0RF Referrals Follow up/Referrals: Roel Malloy, [Staff Physician] - See instructions Ifrah Dsouza APRN [Primary Care Provider] - See instructions Activity Restrictions/Add. Instructions Additional Instructions/Restrictions: At this time it was felt you are safe to be discharged home. If new or worsening symptoms please do not hesitate to return the emergency department. For pain please take 1000 mg of Tylenol and 800 mg of ibuprofen every 6 hours with food. It is okay to take them at the same time. Please take your oxycodone only when these are not bringing her pain to an acceptable level. If oxycodone is not controlling her pain or you have inability to wiggle your fingers or feel your hand or have any other concerning signs or symptoms please not hesitate to return the emergency department. Please call and schedule appoint with Dr. Malloy as soon as you are able. Clinical Impressions Clinical Impression: Distal radius fracture, right Print Language Print Language: Luxembourger Discharge ED Provider: Donovan Smith General Adult HPI General Chief complaint: Extremity Injury, Upper Stated complaint: AO 01/31 3:00 right wrist pain/swelling/bruising Time Seen by Provider: 02/01/24 09:24 Mode of Arrival: Ambulatory Source of Information: Patient Limitations: No Limitations Description of Symptoms (Recalled from ER Triage Doc. by RN): r wrist pain after fall History of Present Illness HPI narrative: Patient is a 33-year-old female with no pertinent past medical history, right- handed who presents emergency department for evaluation of traumatic injury sustained in a fall. Patient fell onto an outstretched hand on her porch in the early hours of this morning. No loss of consciousness. Since then she has complained of worsening right distal forearm pain that is severe in intensity. No other acute complaints at this time. Related Data Previous Rx's ?Medication ?Instructions ?Recorded hydrocodone 5 mg-acetaminophen 325 1 tab PO Q6H PRN pain #10 tabs 08/27/23 mg tablet ibuprofen 800 mg tablet 800 mg PO Q8H PRN pain #20 tabs 08/27/23 desvenlafaxine succinate 25 mg 25 mg PO DAILY #90 tabs 01/18/24 tablet,extended release 24 hr (Pristiq) oxycodone 5 mg tablet 5 mg PO TID PRN pain (scale score 02/01/24 7-10) #9 tabs Allergies Allergy/AdvReac Type Severity Reaction Status Date / Time No Known Allergies Allergy Verified 08/27/23 06:22 [facility] Disclaimer: The information contained in this section may have been updated after the patient was seen, as this information can be updated by other users. Medical History (Updated 02/01/24 @ 09:57 by Donovan Smith MD) Dysmenorrhea Increased risk of breast cancer Contact dermatitis Family history of breast cancer in first degree relative Urinary frequency Tenderness of left axilla Menorrhagia IV drug abuse Anxiety and depression Migraines Headache Surgical History History of surgery on lower extremity History of partial splenectomy History of placement of ear tubes Hx of tubal ligation Family History Mother Cancer breast Early onset menopause Grandmother Cancer, Onset Age: 26 breast Grandfather Cancer Colon and throat, at age 60s Other Anemia Asthma FHx: mental illness Heart attack No significant family history Substance abuse Social History (Updated 08/27/23 @ 06:20 by Gissel Guzman RN) Smoking Status: Current every day smoker tobacco type: e-cigarettes second hand exposure: No alcohol intake: never substance use type: former substance user, marijuana and crack/cocaine current occupational status: other Travel in the last 8 weeks: None household members: family and children housing: house Other Medical History Have you received the Flu Vaccine for this season: No Have you received the Pneumonia Vaccine: No ROS Obtained: Yes Systems reviewed as appropriate & no additional complaints except as documented Physical Exam General General appearance: alert and other (Appearing in pain) Head Head exam: atraumatic and normocephalic Eye Eye exam: Present PERRL ENT ENT exam: Present mucous membranes moist Neck Neck exam: Present normal inspection Chest Chest inspection: Present normal inspection and symmetric chest wall rise Respiratory Respiratory exam: Absent respiratory distress Cardiovascular Cardiovascular exam: Present regular rate and normal rhythm Abdominal Exam Abdominal exam: Present soft Extremities Exam Extremities exam: Present other (Swelling of the distal right forearm, palpable right dorsal pedal pulse, distally neurovascular intact right upper extremity in all digits.) Neurological Exam Neurological exam: Present alert Psychiatric Psychiatric exam: Present normal affect Skin Skin exam: Present warm and dry Medical Decision Making Medical Records Screening: Per USPSTF and CDC recommendations, given the prevalence of disease in our region, it is our hospital?s policy to screen for HIV and viral Hepatitis for all patients aged 18 and over and those with ongoing risk factors. Christian Inquiry Pt receiving controlled substance: No Vital Signs: 02/01/24 09:20 02/01/24 09:23 Temperature 98.4 F Temperature Source Oral Pulse Rate 83 Pulse Rate [Right] 89 Respiratory Rate 20 Blood Pressure 146/84 H Blood Pressure [Right Arm] 146/84 H Blood Pressure Mean [Right Arm] 104 02 Sat by Pulse Oximetry 99 100 Orders (Tests/Meds): ED MEDICATIONS Discontinued Medications Generic Name Dose Route Start Last Admin Trade Name Freq PRN Reason Stop Dose Admin Acetaminophen 1,000 mg 02/01/24 09:24 02/01/24 09:27 Acetaminophen 500mg Tab PO 02/01/24 09:25 1,000 mg ONCE ONE Administration Ibuprofen 600 mg 02/01/24 09:24 02/01/24 09:27 Ibuprofen 600 Mg Tablet PO 02/01/24 09:25 600 mg ONCE ONE Administration Morphine Sulfate 4 mg 02/01/24 09:28 02/01/24 09:40 Morphine 4mg/Ml Syringe IV 02/01/24 09:29 4 mg ONCE ONE Administration Ondansetron HCl 4 mg 02/01/24 09:28 02/01/24 09:40 Ondansetron 4mg/2ml Vial IV 02/01/24 09:29 4 mg ONCE ONE Administration ORDERS Category Date Time Status Forearm XR right 2 views [XR forearm RT 2V] Stat Exams 02/01/24 09:29 Complete d Wrist XR right minimum 3 views [XR wrist RT min 3V] Exams 02/01/24 09:24 Completed Stat HIV (1&2) Antibody Rapid Stat Lab 02/01/24 09:28 Ordered Hep C Ab with Reflex to RNA Stat Lab 02/01/24 09:28 Ordered Medical Decision Narrative: In summary patient is a 33-year-old female past medical history described above who presents emergency department for evaluation of traumatic injury sustained in a fall. Patient is hemodynamically stable nontoxic-appearing upon arrival, afebrile. Differential includes fracture, musculoskeletal strain, among others. Limited workup we conducted with plain film of the right distal upper extremity of the forearm and wrist. Initial inventions include Tylenol, ibuprofen, morphine, Zofran. Intracranial imaging was considered however given that she did not strike her head and has no other traumatic complaints was considered but will be deferred. X-ray informally interpreted by me, acute minimally displaced distal radius fracture with intra-articular extension. No obvious other forearm fracture or carpal fracture. Patient was placed in sugar-tong splint at bedside with success and is appropriate for outpatient management at this time given that have no concern for compartment syndrome and will follow-up with Dr. Malloy in the coming days was given return precautions verbalized understanding. Procedure: Procedure performed was sugar-tong splinting of the right upper extremity. Procedure performed by splint tech under my direct supervision. Using Ortho-Glass a sugar-tong splint was placed with the patient in intrinsic plus. Post splinting check patient has improved pain and preserved capillary refill. Patient tolerated the procedure well. There were no immediate complic ations. Critical Care Critical Care Time Critical Care Time: No
--- NOTE | 2024-02-01 09:29 | XR_ITS ---
PROCEDURE INFORMATION: Exam: XR Right Forearm Exam date and time: 02/01/2024 9:35 AM Age: 33 years old Clinical indication: Injury or trauma; Fall; Blunt trauma (contusions or hematomas); Arm, lower; Right; Additional info: [place]osh TECHNIQUE: Imaging protocol: Radiologic exam of the right forearm. Views: 2 views. COMPARISON: CR XR WRIST RT MIN 3V 02/01/2024 9:33 AM FINDINGS: Bones/joints: Distal radial fracture seen to better advantage on wrist radiograph same day. No proximal fracture identified. Soft tissues: Normal. IMPRESSION: Distal radial fracture seen to better advantage on wrist radiograph same day. No proximal fracture identified.
[2024-02-01] MEDS: MORPHINE 4MG/ML SYRINGE 4 MG IV (09:40)
[2024-02-01] MEDS: ONDANSETRON 4MG/2ML VIAL 4 MG IV (09:40)
--- NOTE | 2024-02-01 10:16 | PC.NURSE ---
sugar tong split applied per Dr. Smith order
[2024-02-01] MEDS: OXYCODONE 5MG IMMEDIATE RELEASE TABLET 5 MG PO (10:27)
[2024-02-01 10:35] VITALS: BP 107/69; PULSE 91; RESP 16; TEMP 36.7
== END 2024-02-01 10:35 | disposition home or self-care (01) ==
PROVIDERS: Emergency Provider Emergency Medicine; PCP Nurse Practitioner Family
DX: M25.531 Pain in right wrist (principal); S52.501A Unspecified fracture of the lower end of right radius, initial encounter for closed fracture; W17.89XA Other fall from one level to another, initial encounter; Y93.89 Activity, other specified; Y92.008 Other place in unspecified non-institutional (private) residence as the place of occurrence of the external cause
CPT/HCPCS: 73090; 73110; 96374; 96375; 99283; J2270; J2405

== ENCOUNTER 2024-02-12 14:58 | Outpatient (CLI) | payer OTHER, SELFPAY ==
--- NOTE | 2024-02-12 15:01 | XR_ITS ---
PROCEDURE INFORMATION: Exam: XR Right Wrist Exam date and time: 02/12/2024 3:02 PM Age: 33 years old Clinical indication: Pain; Wrist; Right; Additional info: Right wrist FX TECHNIQUE: Imaging protocol: Radiologic exam of the right wrist. Views: 3 or more views. Total images: 3 COMPARISON: CR XR WRIST RT MIN 3V 02/01/2024 9:33 AM FINDINGS: Bones/joints: Fracture of the distal radius extending to the radiocarpal joint is noted. No evidence of callus formation. No evidence of acute dislocation. Soft tissues: Soft tissue swelling is present. Other findings: Overlying splinting material is in place. IMPRESSION: 1. Fracture of the distal radius extending to the radiocarpal joint is noted. No evidence of callus formation. 2. No evidence of acute dislocation.
== END 2024-02-12 23:59 | disposition home or self-care (01) ==
LOC: RAD 14:59
PROVIDERS: PCP Nurse Practitioner Family; Visit Provider Orthopaedic Surgery
DX: S52.501A Unspecified fracture of the lower end of right radius, initial encounter for closed fracture (principal)
CPT/HCPCS: 73110

== ENCOUNTER 2024-03-02 13:21 | Outpatient (CLI) | payer OTHER, SELFPAY ==
--- NOTE | 2024-03-02 13:23 | XR_ITS ---
FINAL REPORT CLINICAL HISTORY: fx f/u COMPARISON: 02/12/2024 FINDINGS: AP, oblique, and lateral views of the right wrist were obtained. Plaster cast obscures detail. There has been interval healing of the previously noted distal radius fracture. No new osseous abnormality identified. The joint spaces are preserved. The soft tissues are normal. IMPRESSION: Interval healing distal radius fracture. Reviewed, Interpreted and Dictated by Mechelle Johnston MD Transcribed by Laurence Mantilla Authenticated and . [facility]
== END 2024-03-02 23:59 | disposition home or self-care (01) ==
LOC: RAD 13:21
PROVIDERS: PCP Nurse Practitioner Family; Visit Provider Orthopaedic Surgery
DX: S52.501A Unspecified fracture of the lower end of right radius, initial encounter for closed fracture (principal)
CPT/HCPCS: 73110

== ENCOUNTER 2024-03-23 12:35 | Outpatient (CLI) | payer OTHER, SELFPAY ==
--- NOTE | 2024-03-23 12:39 | XR_ITS ---
FINAL REPORT CLINICAL HISTORY: right wrist f/x COMPARISON: 03/02/2024, 02/12/2024 FINDINGS: RIGHT WRIST 4 views demonstrate a transverse fracture of the radial styloid. Fracture line remains evident. Wrist joint is intact. The visualized joint spaces are normally aligned. The soft tissues are unremarkable. IMPRESSION: Incomplete bony union of nondisplaced radial styloid fracture. Reviewed, Interpreted and Dictated by Ligia Stephenson MD Transcribed by Lydia Lea Authenticated and . [facility]
== END 2024-03-23 23:59 | disposition home or self-care (01) ==
LOC: RAD 12:36
PROVIDERS: PCP Nurse Practitioner Family; Visit Provider Orthopaedic Surgery
DX: M25.531 Pain in right wrist (principal); S52.514A Nondisplaced fracture of right radial styloid process, initial encounter for closed fracture
CPT/HCPCS: 73110

== ENCOUNTER 2024-06-24 10:12 | Outpatient (CLI) | payer OTHER, SELFPAY ==
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
== END 2024-06-24 23:59 | disposition home or self-care (01) ==
LOC: RAD 10:13
PROVIDERS: PCP Nurse Practitioner Family; Visit Provider Orthopaedic Surgery
DX: M25.532 Pain in left wrist (principal); S52.501A Unspecified fracture of the lower end of right radius, initial encounter for closed fracture
CPT/HCPCS: 73110

== ENCOUNTER 2024-07-31 12:30 | Emergency (ER) | payer OTHER, SELFPAY ==
[2024-07-31 12:37] VITALS: BP 141/93; PULSE 101; RESP 16; TEMP 36.9; O2SAT 98; BMI 33.4
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
[2024-07-31] MEDS: TET/DIPHTH/PERT-ADULT 0.5ML SYRINGE 0.5 ML IM (12:54)
[2024-07-31 13:11] VITALS: BP 130/86; PULSE 87; RESP 19; TEMP 36.7; O2SAT 98
[2024-07-31] MEDS: NEOSPORIN OINTMENT 0.9GM UDP 1 EACH TP (13:11)
== END 2024-07-31 13:12 | disposition home or self-care (01) ==
PROVIDERS: Emergency Provider Student in an Organized Health Care Education/Training Program; PCP Nurse Practitioner Family
DX: T24.201A Burn of second degree of unspecified site of right lower limb, except ankle and foot, initial encounter (principal); X17.XXXA Contact with hot engines, machinery and tools, initial encounter; Z23 Encounter for immunization
CPT/HCPCS: 90471; 90715; 99283

== ENCOUNTER 2024-10-01 00:28 | Emergency (ER) | payer OTHER, SELFPAY ==
[2024-10-01 00:35] VITALS: BP 124/80; PULSE 68; RESP 16; TEMP 36.6; O2SAT 97; BMI 31.9
--- NOTE | 2024-10-01 00:48 | ED_ITS ---
Discharge Plan Disposition Patient Disposition: Home, Self-Care Prescriptions Prescriptions: New methocarbamol 500 mg tablet 1,000 mg PO Q6H PRN (Reason: pain) Qty: 30 0RF lidocaine 5 % adhesive patch,medicated 1 patch topical DAILY PRN (Reason: pain) Qty: 30 0RF Rx Instructions: leave on most painful area for up to 12 hrs No Action ondansetron 4 mg tablet,disintegrating 4 mg PO Q8H PRN (Reason: nausea and vomiting) Qty: 14 0RF amoxicillin-pot clavulanate 875-125 mg tablet 1 tab PO BID 10 Days Qty: 20 0RF methylprednisolone [Medrol (Harry)] 4 mg tablets,dose pack See Rx Instructions PO PER PKG DIR Qty: 21 0RF Rx Instructions: PO PER PKG DIR for 6 days Referrals Follow up/Referrals: Ifrah Dsouza APRN [Primary Care Provider, Family Practice] - See instructions Activity Restrictions/Add. Instructions Additional Instructions/Restrictions: Please follow-up with your primary care provider. Please return to the emergency department if you develop any new or worsening symptoms or become concerned for your health. Take Tylenol and ibuprofen as needed for pain. Please use lidocaine patches and take Robaxin as needed for pain. Clinical Impressions Clinical Impression: Hematoma of left buttock Print Language Print Language: Argentine Discharge ED Provider: Filemon Gavin Adult HPI General Chief complaint: Extremity Injury, Lower Stated complaint: injury L glute,bruising,swelling Time Seen by Provider: 10/01/24 00:35 Mode of Arrival: Ambulatory Source of Information: Patient Description of Symptoms (Recalled from ER Triage Doc. by RN): pt presents to the ed with c/o swelling and tenderness to left hip since falling a couple weeks ago. Pt reports GLF with no LOC. Reports to working since with pain increasing at the time has went on. History of Present Illness HPI narrative: 34-year-old female without significant past medical history presents for knot and bruising of the left glued. She fell couple weeks ago while working and landed hard on a wooden beam. She reports that it was bruised and painful at that time. It was getting a little better and then she rolled over today and felt a pop and now the pain has been worse. She reports that she has been walking a little differently and her back is now sore over the last couple of days. She denies any fever or concern for infection. No reported laceration. Reports that she is not concerned it could be fractured. Related Data Previous Rx's ?Medication ?Instructions ?Recorded ondansetron 4 mg disintegrating 4 mg PO Q8H PRN nausea and 07/08/24 tablet vomiting #14 tabs amoxicillin 875 mg-potassium 1 tab PO BID 10 days #20 tabs 07/12/24 clavulanate 125 mg tablet methylprednisolone 4 mg tablets in See Rx Instructions PO PER PKG DIR 07/12/24 a dose pack (Medrol (Harry)) #21 tabs lidocaine 5 % topical patch 1 patch topical DAILY PRN pain #30 10/01/24 ea methocarbamol 500 mg tablet 1,000 mg (2 x 500 mg) PO Q 6H PRN 10/01/24 pain #30 tabs Allergies Allergy/AdvReac Type Severity Reaction Status Date / Time No Known Allergies [facility]ergy Verified 07[facility]12[facility]24 11:[facility] Disclaimer: The information contained in this section may have been updated after the patient was seen, as this information can be updated by other users. Medical History (Updated 10/01/24 @ 00:55 by Filemon Gavin MD) Sinusitis Nausea vomiting and diarrhea Dysmenorrhea Increased risk of breast cancer Contact dermatitis Family history of breast cancer in first degree relative Urinary frequency Tenderness of left axilla Menorrhagia IV drug abuse Anxiety and depression Migraines Headache Surgical History History of surgery on lower extremity History of partial splenectomy History of placement of ear tubes Hx of tubal ligation Family History Mother Cancer breast Early onset menopause Grandmother Cancer, Onset Age: 26 breast Grandfather Cancer Colon and throat, at age 60s Other Anemia Asthma FHx: mental illness Heart attack No significant family history Substance abuse Social History Smoking Status: Current every day smoker tobacco type: e-cigarettes second hand exposure: No alcohol intake: never substance use type: former substance user, marijuana and crack/cocaine current occupational status: other Travel in the last 8 weeks?: None household members: family and children housing: house Have you lived/traveled outside US in past 30 days?: No Contact w/someone who lives/traveled outside US past 30 days?: No Exposure to someone with infectious disease in past 14 days?: No Do you have a fever (greater than 100.4 F or 38 C)?: No Have you tested positive for COVID-19?: No Exposed to someone with COVID-19 in past 14 days?: No Do you have a sore throat?: No Do you have a cough?: No Do you have any weakness?: No Do you have any diarrhea?: No Are you experiencing any unusual bleeding?: No Do you have any muscle aches/pain?: No Do you have any abdominal pain?: No Are you experiencing loss of taste or smell?: No Other Medical History Have you received the Flu Vaccine for this season: No Have you received the Pneumonia Vaccine: No ROS Obtained: Yes All systems reviewed & no additional complaints except as documented Physical Exam General General appearance: alert and in no apparent distress Head Head exam: atraumatic and normocephalic Eye Eye exam: Present normal appearance, PERRL and EOMI ENT ENT exam: Present normal oropharynx and normal external ear exam Neck Neck exam: Present normal inspection and full ROM Chest Chest inspection: Present normal inspection and symmetric chest wall rise; Absent tenderness Respiratory Respiratory exam: Present normal lung sounds bilaterally; Absent respiratory distress Cardiovascular Cardiovascular exam: Present regular rate and normal rhythm Abdominal Exam Abdominal exam: Present soft; Absent distention, tenderness or guarding Extremities Exam Extremities exam: Present other (Bruising to the skin and a subcutaneous knot felt in the left upper glutes. No evidence of laceration or overlying cellulitis. No induration.) Back Exam Back exam: Present normal inspection; Absent tenderness Neurological Exam Neurological exam: Present alert and oriented X3; Absent motor sensory deficit Psychiatric Psychiatric exam: Present normal affect and normal mood Skin Skin exam: Present warm, dry and normal color Lymphatic Lymphatic Findings: no adenopathy Medical Decision Making Medical Records Medical records reviewed: Yes I reviewed the patient's medical records. Screening: Per USPSTF and CDC recommendations, given the prevalence of disease in our region, it is our hospital?s policy to screen for HIV and viral Hepatitis for all patients aged 18 and over and those with ongoing risk factors. Christian Inquiry Pt receiving controlled substance: No Christian was queried for this patient: No Vital Signs: 10/01/24 00:35 10/01/24 01:04 Temperature 98 F 98 F Temperature Source Oral Oral Pulse Rate 74 Pulse Rate [Radial] 68 Respiratory Rate 16 16 Blood Pressure 124/60 Blood Pressure [Right Arm] 124/80 Blood Pressure Mean [Right Arm] 94 Blood Pressure Position Sitting Blood Pressure Position [Right Arm] Sitting 02 Sat by Pulse Oximetry 97 Oxygen Delivery Method Room Air Room Air Lab Data Lab results reviewed: Yes I reviewed the patient's lab results. Orders (Tests/Meds): ED MEDICATIONS Discontinued Medications Generic Name Dose Route Start Last Admin Trade Name [place] PRN Reason Stop Dose Admin Lidocaine 1 each 10/01/24 00:53 10/01/24 00:58 Lidocaine 5% Transdermal Patch TD 10/01/24 00:54 1 each ONCE ONE Administration Methocarbamol 1,000 mg 10/01/24 00:53 10/01/24 00:59 Methocarbamol 500mg Tablet PO 10/01/24 00:54 1,000 mg ONCE ONE Administration Medical Decision Narrative: 34-year-old female without significant past medical history presents for a painful knot and bruising after a fall a couple weekends ago while working.. History was obtained via interactive discussion with patient. On arrival, patient is [afebrile, hemodynamically stable, satting appropriately, alert, oriented x4, GCS 15], moving all extremities spontaneously. Full physical exam performed and significant for bruising and subcutaneous knot to the left upper glute. Differential includes but is not limited to intramuscular hematoma, abscess, cellulitis, fracture. Extensive discussion was had with patient regarding presentation. Low concern for fracture given she has been walking on it without significant difficulty and the tenderness is limited to the soft tissues. No evidence of infection based on exam. Patient likely has a intramuscular hematoma. No concern at this point that it is still bleeding given duration of time since the injury. Patient was given muscle relaxer and lidocaine patches and discharged with prescription for same. Return precautions given.. Procedures Risk/Benefits of Procedure(s) Were Explained: Yes Critical Care Critical Care Time Critical Care Time: No
[2024-10-01] MEDS: LIDOCAINE 5% TRANSDERMAL PATCH 1 EACH TD (00:58)
[2024-10-01] MEDS: METHOCARBAMOL 500MG TABLET 1000 MG PO (00:59)
[2024-10-01 01:04] VITALS: BP 124/60; PULSE 74; RESP 16; TEMP 36.6; O2SAT 100
== END 2024-10-01 01:06 | disposition home or self-care (01) ==
PROVIDERS: Emergency Provider Emergency Medicine; PCP Nurse Practitioner Family
DX: M79.81 Nontraumatic hematoma of soft tissue (principal); F17.210 Nicotine dependence, cigarettes, uncomplicated; F33.9 Major depressive disorder, recurrent, unspecified
CPT/HCPCS: 99283

== ENCOUNTER 2025-04-04 13:50 | Emergency (ER) | payer SELFPAY ==
[2025-04-04] VITALS (10 sets, daily range): BP systolic 108–189; BP diastolic 53–95; PULSE 49–73; RESP 18; TEMP 36.8–37.2; O2SAT 99–100; BMI 29.9
--- OUTSIDE RECORDS SUMMARY | 2025-04-04 14:06 | XMS_ITS | Referral Summary ---
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 Name Role Phone Unavailable Primary Care Provider Unavailabl e Social History Tobacco Use Types Packs/Day Years Used Date Smoking Tobacco: Never Assessed Family and Community Support Answer Denis e Recorded Help with Day to Day Activities Not on file 08/29/2023 Feeling Lonely or Isolated Not on file 08/28 Educational Attainment Answer Date Tres rded Speak language other than Albanian at home Not on file 08/29/2023 Want help with school or training Not on file 08/29/2023 Substance Use Answer Date Recorded Used prescription meds for non-medical reasons N ot on file 08/29/2023 Used illegal drugs past 12 months Not on file 08/29/2023 Comments Unknown Sex and Gender Information Value Date Recorded Sex Assigned at Not on file Legal Sex Female 9:43 AM CDT Gender Identity Not on file Sexual Orientation Not on file Plan of Treatment Not on file Insurance [facility]
--- OUTSIDE RECORDS SUMMARY | 2025-04-04 14:06 | XMS_ITS | Clinical Summary ---
Author Organization Healthcare Address [address] [place] [address] Care Team Providers Care Life Manager Name Role Phone Unavailable Primary Care Provider Unavailabl e Allergies No known active allergies Medications * This document contains information received from the source organization and may not represent a complete record from that organization. amitriptyline (Elavil) 10 MG tablet Take by mouth every night. Active Active Problems No known active problems Immunizations Immunization Administration Dates Next Due Hib (PRP-T) 07/03/2018 Meningococcal B, Omv 07/03/2018 Meningococcal MCV4O 07/03/2018 Pneumococcal Conjugate PCV 13 07/03/2018 Social History Tobacco Use Types Packs/Day Years Used Date Smoking Tobacco: Every Day Comments Unknown Sex and Gender Information Value Date Recorded Sex Assigned at Not on file Legal Sex Female 7:53 PM EDT Gender Identity Not on file Sexual Orientation Not on file Last Filed Vital Signs Vital Sign Reading Time Taken Comments Blood Pressure 116/76 08/05/2018 1:08 PM EDT Pulse 76 08/05/2018 1:08 PM EDT Temperature 36.7 C (98 F) 07/16/2018 2:51 PM EDT Respiratory Rate - - Oxygen Saturation - - Inhaled Oxygen Concentration - - Weight 78 kg (172 lb) 10/01/2022 1:46 PM EDT Height 165.1 cm (5' 5 ) 10/01/2022 1:46 PM EDT Body Mass Index 28.62 10/01/2022 1:46 PM EDT Plan of Treatment Health Maintenance Due Date Last Done Comments [facility]-Depression Screening 1992 [facility]-/Child/Adol SDOH Screenings 1992 [facility]-IPV Vaccines (2 of 3 - 4-dose series) 09/30/1996 09/02/1996 [facility]-Varicella Vaccines (1 of 2 - 13+ 2-dose series) 2005 [facility]- SDOH Screenings 2010 [facility]-Adult SDOH Screenings 2010 [facility]-DTaP,Tdap,and Td Vaccine s (2 - Tdap) 08/07/2011 09/02/1996 [facility]-Hepatitis B Vaccines (1 of 3 - 19+ 3-dose series) 08/07/2011 [facility]-Pap Smear 2013 [facility]-Cervical Cancer Screening 2022 [facility]-HPV/Cotest 2022 [id number]-PHJPM-96 Vaccine ( - season) 2024 [facility]-Influenza Vaccine (#1) 2024 02/08/2009 [facility]-Zoster Vaccines (1 of 2) 2042 [facility]-HIV Screening Completed 02/12/2018 [facility]-HIB Vaccines Aged Out 07/03/2018 No longer e ligible based on patient's age to complete this topic [facility]-Pneumococcal Vaccine: Pediatrics (0 to 5 Years) and At-Risk Patients (6 to 49 Years) Aged Out 07/03/2018 No longer eligible b ased on patient's age to complete this topic [facility]-Obesity Intervention Completed 024, 10/01/2022 HPV Vaccines (No Doses Required) Completed [facility]-Hepatitis A Vaccines Aged Out No longer eligible based on patient's age to complete this topic [facility]-Rotavirus Vaccines Aged Out No lo nger eligible based on patient's age to complete this topic Procedures Procedure Name Priority Date/Time Associated Diagnosis Comments HIV 1/2 ANTIBODY/ANTIGEN SCREEN WITH REFLEX TO HIV I/II DIFFERENTIATION STAT 02/12/2018 6:09 PM EST from Last 3 Months or Most Recently Relevant to Health Maintenance Results * HIV 1 & 2 Antibody/Antigen Screen (02/12/2018 6:09 PM EST) HIV 1 Result NONREACTIVE Screening for HIV 1 and 2 antibodies is NONREACTIVE. No confirmatory testing is required. SUNQUEST 02/12/2018 6:09 PM EST 02/12/2018 6:58 PM EST us Georgia Love MD LAB BLOOD ORDERABLES Final Res ult SUNQUEST from Last 3 Months or Most Recently Relevant to Health Maintenance Insurance
--- OUTSIDE RECORDS SUMMARY | 2025-04-04 14:06 | XMS_ITS | Clinical Summary ---
Author Organization [employer] ([place], [place], [place], [place], [place]) Address [address] [place] [address] Care Team Providers Care Power Transformer Assembler Name Role Phone Unavailable Primary Care Provider Unavailabl e Family History Medical History Relation Name Comments Colon cancer Maternal Grandfather Breast cancer Maternal Grandmother Lung cancer Mother Relation Name Status Comments Maternal Grandfather Maternal Grandmother Mother Social History Tobacco Use Types Packs/Day Years Used Date Smoking Tobacco: Never Assessed Family and Community Support Answer Denis e Recorded Help with Day to Day Activities Not on file 08/29/2023 Feeling Lonely or Isolated Not on file 08/28 Educational Attainment Answer Date Tres rded Speak language other than Ecuadorean at home Not on file 08/29/2023 Want [...] Orientation Not on file Plan of Treatment Health Maintenance Due Date Last Done Comments Depression Screening (12+) 2004 Tobacco Cessation Counseling and Screening (12+) 2004 HIV Screening 08/07/2007 Hepatitis C Screening 2010 DTAP/TDAP/TD VACCINES (2 - Tdap) 08/07/2011 09/02/18 97 Pap Smear 2013 COVID-19 VACCINE (2023-2 5 season) 2024 Influenza Vaccine (#1) 2024 Pneumococcal Vaccine: 0-49 Years Aged Out 07/04/19 19 No longer eligible based on patient's age to complete this topic Insurance [facility]
--- NOTE | 2025-04-04 14:11 | CT_ITS ---
FINAL REPORT TECHNIQUE: Thin section axial images are obtained through the abdomen and pelvis after intravenous contrast. Reconstruction images were obtained from the axial data. Exam was performed using dose reduction techniques. CLINICAL HISTORY: RLQ abd pain COMPARISON: 01/28/2018 FINDINGS: LUNG BASES: Lung bases are clear. Heart size is normal. LIVER: Homogeneous. No focal lesion. GALLBLADDER/BILIARY SYSTEM: Gallbladder is present. No gallstones. No biliary dilatation. SPLEEN: Unremarkable. PANCREAS: Unremarkable. ADRENALS: Unremarkable. KIDNEYS/URETERS/BLADDER: No hydronephrosis, renal mass, or renal stone. Unremarkable urinary bladder. GI TRACT: No small bowel obstruction or dilatation. Normal appendix. No acute colon abnormality. PELVIC ORGANS: Uterus is present. There is a 26 mm right ovarian lesion, likely functional cyst. Left ovary unremarkable. LYMPH NODES/RETROPERITONEUM/MESENTERY: No lymphadenopathy. No abdominal aortic aneurysm. ABDOMINAL WALL: The abdominal wall is intact. FREE FLUID: Physiologic. BONES: No acute osseous abnormality. IMPRESSION: Normal appendix. Right ovarian cyst, likely functional. Given size of lesion and presumably premenopausal patient, no follow-up needed. Reviewed, Interpreted and Dictated by Mechelle Johnston MD Transcribed by Laurence Mantilla Authenticated and [facility]
--- NOTE | 2025-04-04 14:12 | HMH.EDGENADL ---
Discharge Plan Disposition Patient Disposition: Home, Self-Care Prescriptions Prescriptions: New ondansetron 4 mg tablet,disintegrating 4 mg PO Q6H PRN (Reason: nausea and vomiting) Qty: 16 0RF No Action amoxicillin-pot clavulanate 875-125 mg tablet 1 tab PO BID 10 Days Qty: 20 0RF Referrals Follow up/Referrals: Ifrah Dsouza APRN [Primary Care Provider, Family Practice] - See instructions Activity Restrictions/Add. Instructions Additional Instructions/Restrictions: Your ultrasound showed a ruptured ovarian cyst, likely the source of your pain. These will often resolve on their own without intervention. I do encourage you to take 800 mg of ibuprofen every 6 hours as needed to help with pain. In addition to this you can also take Tylenol 1000 mg every 6 hours to help with your symptoms. I do encourage you to follow-up with your nightclub manager if symptoms do not resolve over the next couple of days. If you develop any new or worsening symptoms, or if you become concerned for your health for any reason, return to the emergency department for evaluation. Clinical Impressions Clinical Impression: Abdominal pain, RLQ, Hemorrhagic cyst of right ovary Instructions Patient Instructions: DI for Acute Abdominal Pain Print Language Print Language: Macedonian Discharge ED Provider: Angelica Waller General Adult HPI <Angelica Waller MD - Last Filed: 04/04/25 14:51> General Chief complaint: Abdominal Pain Stated complaint: abd pain, nausea Time Seen by Provider: 04/04/25 13:51 Mode of Arrival: Ambulatory Source of Information: Patient Description of Symptoms (Recalled from ER Triage Doc. by RN): PT presents with abdominal pain for the last three days. Pt does c/o nausea, but denies any vomititng or diarrhea. History of Present Illness HPI narrative: Patient is a 34-year-old female presenting today with primarily right lower quadrant abdominal pain. She states that initially started as what she thought was gas in the mid epigastric region has migrated and been persistent and constant and severe in the right lower quadrant over the last day. She denies any changes in urination no frequency urgency dysuria hematuria no history of kidney stones no history of any ovarian pathology. She has not had any organs removed in the past. States that they ride over here and walking significantly worsens this. No fevers chills no changes in bowel movements she has been regular with her periods most recently 1 to 2 weeks ago. Related Data Previous Rx's ?Medication ?Instructions ?Recorded amoxicillin 875 mg-potassium 1 tab PO BID 10 days #20 tabs 01/17/25 clavulanate 125 mg tablet ondansetron 4 mg disintegrating 4 mg PO Q6H PRN nausea and 04/04/25 tablet vomiting #16 tabs Allergies Allergy/AdvReac Type Severity Reaction Status Date / Time No Known Allergies Allergy Verified 01/17/25 10:48 [facility] <J Hiren Waller MD - Last Filed: 04/04/25 14:51> [facility] Disclaimer: The information contained in this section may have been updated after the patient was seen, as this information can be updated by other users. Medical History Sinusitis Nausea vomiting and diarrhea Dysmenorrhea Increased risk of breast cancer Contact dermatitis Family history of breast cancer in first degree relative mother also maternal grandmother and maternal great grandmother Urinary frequency Tenderness of left axilla Menorrhagia IV drug abuse 2018, sober since 2019 Anxiety and depression Migraines Headache Surgical History History of surgery on lower extremity History of partial splenectomy 2018 History of placement of ear tubes Hx of tubal ligation 2018 Family History Mother Cancer breast Early onset menopause Grandmother Cancer, Onset Age: 26 breast Grandfather Cancer Colon and throat, at age 60s Other Anemia Asthma FHx: mental illness Heart attack No significant family history Substance abuse Social History Smoking Status: Current every day smoker tobacco type: e-cigarettes second hand exposure: No alcohol intake: never substance use type: former substance user, marijuana and crack/cocaine current occupational status: other Travel in the last 8 weeks?: None household members: family and children housing: house Have you lived/traveled outside [place] in past 30 days?: No Contact w/someone who lives/traveled outside US past 30 days?: No Exposure to someone with infectious disease in past 14 days?: No Do you have a fever (greater than 100.4 F or 38 C)?: No Have you tested positive for COVID-19?: No Exposed to someone with COVID-19 in past 14 days?: No Do you have a sore throat?: No Do you have a cough?: No Do you have any weakness?: No Do you have any diarrhea?: No Are you experiencing any unusual bleeding?: No Do you have any muscle aches/pain?: No Do you have any abdominal pain?: No Are you experiencing loss of taste or smell?: No Other Medical History Have you received the Flu Vaccine for this season: No Have you received the Pneumonia Vaccine: No <Angelica Waller MD - Last Filed: 04/04/25 14:51> ROS Obtained: Yes All systems reviewed & no additional complaints except as documented Physical Exam <Angelica Waller MD - Last Filed: 04/04/25 14:51> General General appearance: alert and in no apparent distress Respiratory Respiratory exam: Present normal lung sounds bilaterally Cardiovascular Cardiovascular exam: Present regular rate Abdominal Exam Abdominal exam: Present soft and tenderness (Patient has significant tenderness in the right lower quadrant with some involuntary guarding) Neurological Exam Neurological exam: Present alert and oriented X3 Medical Decision Making <Angelica Waller MD - Last Filed: 04/04/25 14:51> Medical Records Screening: Per USPSTF and CDC recommendations, given the prevalence of disease in our region, it is our hospital?s policy to screen for HIV and viral Hepatitis for all patients aged 18 and over and those with ongoing risk factors. Christian Inquiry Pt receiving controlled substance: No Vital Signs: 04/04/25 13:56 04/04/25 14:04 04/04/25 14:11 Temperature 99.0 F Temperature Source Oral Pulse Rate 73 64 Pulse Rate [Right] 67 Respiratory Rate 18 Blood Pressure 137/95 H 116/69 Blood Pressure [Right Arm] 189/75 H Blood Pressure Mean [Right Arm] 113 Blood Pressure Source [Right Arm] Automatic Cuff Blood Pressure Position [Right Arm] Sitting 02 Sat by Pulse Oximetry 100 100 100 Oxygen Delivery Method Room Air 04/04/25 14:15 04/04/25 14:30 04/04/25 15:00 Temperature Temperature Source Pulse Rate 61 61 61 Pulse Rate [Right] Respiratory Rate Blood Pressure 123/69 128/53 L 118/78 Blood Pressure [Right Arm] Blood Pressure Mean [Right Arm] Blood Pressure Source [Right Arm] Blood Pressure Position [Right Arm] 02 Sat by Pulse Oximetry 100 99 100 Oxygen Delivery Method 04/04/25 15:17 04/04/25 17:30 04/04/25 17:45 Temperature Temperature Source Pulse Rate 49 L 53 L 50 L Pulse Rate [Right] Respiratory Rate Blood Pressure 110/73 108/73 L 110/66 Blood Pressure [Right Arm] Blood Pressure Mean [Right Arm] Blood Pressure Source [Right Arm] Blood Pressure Position [Right Arm] 02 Sat by Pulse Oximetry 100 100 100 Oxygen Delivery Method Room Air Room Air Room Air Lab Data Lab Results 04/04/25 12:01: Urine Color Yellow, Urine Appearance Clear, Urine pH 6.5, Ur Specific [place] 1.010, Urine Protein Negative, Urine Glucose (UA) Negative, Urine Ketones Negative, Urine Blood Negative, Urine Nitrate Negative, Urine Bilirubin Negative, Urine Urobilinogen 0.2, Ur Leukocyte Esterase Negative, Urine RBC None, Urine WBC 5-10, Ur Squamous Epith Cells 10-20, Urine Bacteria 2+ 04/04/25 14:10: WBC 8.4, RBC 4.66, Hgb 13.6, Hct 40.0, MCV 85.8, MCH 29.2, MCHC 34.0, RDW 13.4, Plt Count 190, MPV 9.1, Neut % (Auto) 76.7, Lymph % (Auto) 15.8, [place] % (Auto) 5.9, Eos % (Auto) 1.1, Baso % (Auto) 0.1, Neut # (Auto) 6.5, Lymph # (Auto) 1.3, [place] # (Auto) 0.5, Eos # (Auto) 0.1, Baso # (Auto) 0.0, Sodium 137, Potassium 4.0, Chloride 104, Carbon Dioxide 25, Anion Gap 12.0, BUN 17, Creatinine 1.00, Estimated Creat Clear 104, Estimated GFR 64, Est GFR ( Amer) 78, Glucose 89, Calcium 9.9, Total Bilirubin 0.4, AST 20, ALT 14, Alkaline Phosphatase 53, Total Protein 8.0, Albumin 4.8, Globulin 3.2, Albumin/Globulin Ratio 1.5, Serum HCG, Qual Negative 04/04/25 14:10 04/04/25 14:10 Orders (Tests/Meds): ED MEDICATIONS Generic Name Dose Route Start Last Admin Trade Name Orville PRN Reason Stop Dose Admin Sodium Chloride 10 ml 04/04/25 15:07 04/04/25 15:08 Sodium Chloride 0.9% 10ml Syr (Rad Only) IV 05/04/25 15:06 10 ml NEEDED PRN Administration Maintain IV Site Discontinued Medications Generic Name Dose Route Start Last Admin Trade Name Orville PRN Reason Stop Dose Admin Lactated Ringer's 1,000 mls @ 999 mls/hr 04/04/25 14:15 04/04/25 15:18 Lactated Ringer's 1000 Ml Bag IV 04/04/25 15:15 Infused .Q1H1M JEWELS Infusion Iopamidol 75 ml 04/04/25 15:07 04/04/25 15:08 Iopamidol-370 (76%);100ml Bottle IV 04/04/25 15:08 75 ml ONCE ONE Administration Ketorolac Tromethamine 15 mg 04/04/25 16:22 04/04/25 16:30 Ketorolac 15mg/Ml Vial IV 04/04/25 16:23 15 mg ONCE ONE Administration Morphine Sulfate 4 mg 04/04/25 14:11 04/04/25 14:18 Morphine 4mg/Ml Syringe IV 04/04/25 14:12 4 mg ONCE ONE Administration Ondansetron HCl 4 mg 04/04/25 14:11 04/04/25 14:18 Ondansetron 4mg/2ml Vial IV 04/04/25 14:12 4 mg ONCE ONE Administration ORDERS Category Date Time Status CT abdomen pelvis w con Stat Cat Scan 04/04/25 14:11 Completed POCUS Point of Care (ER Only) Stat Exams 04/04/25 16:22 Ordered US transvaginal Stat Exams 04/04/25 16:33 Completed CBC w/Auto Diff [Complete Blood Count Auto Diff] Stat Lab 04/04/25 14:10 Completed CMP [Comprehensive Metabolic Panel] Stat Lab 04/04/25 14:10 Completed HCG Qualitative, Serum Stat Lab 04/04/25 14:10 Completed UA [Urinalysis and Microscopic] Stat Lab 04/04/25 12:01 Completed Urine Culture Stat Micro 04/04/25 12:01 Received Medical Decision Narrative: Patient with above history and physical with concerning tenderness in the right lower quadrant differential includes appendicitis mesenteric adenitis rupture ovarian cyst tubo-ovarian abscess ectopic etc. Labs CT with contrast IV fluids pain medicine nausea medicine have been administered and will reassess shortly. Care transitioned to Dr. Pires at 3 PM pending labs and CT scan. <Oc Rankin MD - Last Filed: 04/04/25 18:06> Vital Signs: 04/04/25 13:56 04/04/25 14:04 04/04/25 14:11 Temperature 99.0 F Temperature Source Oral Pulse Rate 73 64 Pulse Rate [Right] 67 Respiratory Rate 18 Blood Pressure 137/95 H 116/69 Blood Pressure [Right Arm] 189/75 H Blood Pressure Mean [Right Arm] 113 Blood Pressure Source [Right Arm] Automatic Cuff Blood Pressure Position [Right Arm] Sitting 02 Sat by Pulse Oximetry 100 100 100 Oxygen Delivery Method Room Air 04/04/25 14:15 04/04/25 14:30 04/04/25 15:00 Temperature Temperature Source Pulse Rate 61 61 61 Pulse Rate [Right] Respiratory Rate Blood Pressure 123/69 128/53 L 118/78 Blood Pressure [Right Arm] Blood Pressure Mean [Right Arm] Blood Pressure Source [Right Arm] Blood Pressure Position [Right Arm] 02 Sat by Pulse Oximetry 100 99 100 Oxygen Delivery Method 04/04/25 15:17 04/04/25 17:30 04/04/25 17:45 Temperature Temperature Source Pulse Rate 49 L 53 L 50 L Pulse Rate [Right] Respiratory Rate Blood Pressure 110/73 108/73 L 110/66 Blood Pressure [Right Arm] Blood Pressure Mean [Right Arm] Blood Pressure Source [Right Arm] Blood Pressure Position [Right Arm] 02 Sat by Pulse Oximetry 100 100 100 Oxygen Delivery Method Room Air Room Air Room Air Lab Data Lab Results 04/04/25 12:01: Urine Color Yellow, Urine Appearance Clear, Urine pH 6.5, Ur Specific [place] 1.010, Urine Protein Negative, Urine Glucose (UA) Negative, Urine Ketones Negative, Urine Blood Negative, Urine Nitrate Negative, Urine Bilirubin Negative, Urine Urobilinogen 0.2, Ur Leukocyte Esterase Negative, Urine RBC None, Urine WBC 5-10, Ur Squamous Epith Cells 10-20, Urine Bacteria 2+ 04/04/25 14:10: WBC 8.4, RBC 4.66, Hgb 13.6, Hct 40.0, MCV 85.8, MCH 29.2, MCHC 34.0, RDW 13.4, Plt Count 190, MPV 9.1, Neut % (Auto) 76.7, Lymph % (Auto) 15.8, [place] % (Auto) 5.9, Eos % (Auto) 1.1, Baso % (Auto) 0.1, Neut # (Auto) 6.5, Lymph # (Auto) 1.3, [place] # (Auto) 0.5, Eos # (Auto) 0.1, Baso # (Auto) 0.0, Sodium 137, Potassium 4.0, Chloride 104, Carbon Dioxide 25, Anion Gap 12.0, BUN 17, Creatinine 1.00, Estimated Creat Clear 104, Estimated GFR 64, Est GFR ( Amer) 78, Glucose 89, Calcium 9.9, Total Bilirubin 0.4, AST 20, ALT 14, Alkaline Phosphatase 53, Total Protein 8.0, Albumin 4.8, Globulin 3.2, Albumin/Globulin Ratio 1.5, Serum HCG, Qual Negative Orders (Tests/Meds): ED MEDICATIONS Generic Name Dose Route Start Last Admin Trade Name Freq PRN Reason Stop Dose Admin Sodium Chloride 10 ml 04/04/25 15:07 04/04/25 15:08 Sodium Chloride 0.9% 10ml Syr (Rad Only) IV 05/04/25 15:06 10 ml NEEDED PRN Administration Maintain IV Site Discontinued Medications Generic Name Dose Route Start Last Admin Trade Name Freq PRN Reason Stop Dose Admin Lactated Ringer's 1,000 mls @ 999 mls/hr 04/04/25 14:15 04/04/25 15:18 Lactated Ringer's 1000 Ml Bag IV 04/04/25 15:15 Infused .Q1H1M JEWELS Infusion Iopamidol 75 ml 04/04/25 15:07 04/04/25 15:08 Iopamidol-370 (76%);100ml Bottle IV 04/04/25 15:08 75 ml ONCE ONE Administration Ketorolac Tromethamine 15 mg 04/04/25 16:22 04/04/25 16:30 Ketorolac 15mg/Ml Vial IV 04/04/25 16:23 15 mg ONCE ONE Administration Morphine Sulfate 4 mg 04/04/25 14:11 04/04/25 14:18 Morphine 4mg/Ml Syringe IV 04/04/25 14:12 4 mg ONCE ONE Administration Ondansetron HCl 4 mg 04/04/25 14:11 04/04/25 14:18 Ondansetron 4mg/2ml Vial IV 04/04/25 14:12 4 mg ONCE ONE Administration ORDERS Category Date Time Status CT abdomen pelvis w con Stat Cat Scan 04/04/25 14:11 Completed POCUS Point of Care (ER Only) Stat Exams 04/04/25 16:22 Ordered US transvaginal Stat Exams 04/04/25 16:33 Completed CBC w/Auto Diff [Complete Blood Count Auto Diff] Stat Lab 04/04/25 14:10 Completed CMP [Comprehensive Metabolic Panel] Stat Lab 04/04/25 14:10 Completed HCG Qualitative, Serum Stat Lab 04/04/25 14:10 Completed UA [Urinalysis and Microscopic] Stat Lab 04/04/25 12:01 Completed Urine Culture Stat Micro 04/04/25 12:01 Received Medical Decision Narrative: Patient with above history and physical with concerning tenderness in the right lower quadrant differential includes appendicitis mesenteric adenitis rupture ovarian cyst tubo-ovarian abscess ectopic etc. Labs CT with contrast IV fluids pain medicine nausea medicine have been administered and will reassess shortly. Care transitioned to Dr. Rankin at 3 PM pending labs and CT scan. Oc Rankin MD At the time my assumption of care, plan was to follow-up patient CT imaging and urine studies. Ultimately, patient's workup showed no leukocytosis, no anemia, electrolytes and kidney function within normal limits. Liver enzymes and bilirubin within normal limits. Negative test. No evidence of urinary tract infection CT abdomen pelvis interpreted by me personally shows no evidence of appendicitis. She has a small 2.8 mm cyst on the right ovary but no other acute findings within the abdomen. See radiology report for details. On reassessment, patient reports continued pain. She describes the pain is in the upper abdomen on the right side as well as right lower abdomen. Will obtain bedside gallbladder ultrasound to rule out cholecystitis. Right upper quadrant ultrasound was negative. See procedure note for details. Will administer 15 mg Toradol and obtain transvaginal ultrasound to rule out ovarian torsion. Transvaginal ultrasound showed a ruptured hemorrhagic right ovarian cyst but no evidence of torsion. On reassessment, patient remains in stable condition. She has some mild discomfort on palpation but abdomen is not peritonitic. Do feel that this cyst will likely resolve on its own and encouraged Tylenol and ibuprofen at home and follow-up with her nightclub manager. Strict return precautions were given. All questions were answered. She demonstrated understanding was in agreement this plan. She was then discharged from the emergency department in stable condition. Procedures <Oc Rankin MD - Last Filed: 04/04/25 18:06> Limited Ultrasound Indication:: Limited RUQ ultrasound Indication: Abdominal pain Identified structures: -Gallbladder -Gallbladder wall -Common bile duct -Liver Findings: Sonographic Galvan sign: Absent Gallstones: Absent Sludge: Absent Pericholecystic fluid: Absent Maximal GB wall thickness (mm): Normal is </= 3mm Normal Common bile duct width (mm): Normal is </= 6mm Normal Gallbladder width (cm): Normal is < 4cm Normal Gallbladder length (cm): Normal is < 10cm Normal Impression: -Normal gallbladder Images were saved to permanent archive The study was technically adequate CPT 45938-70 This study was performed by me, Oc Rankin MD, and I personally interpreted all images/videos. Based on my clinical judgement, these images were adequate and did not necessitate further imaging. Critical Care <Angelica Waller MD - Last Filed: 04/04/25 14:51> Critical Care Time Critical Care Time: No
[2025-04-04 14:17] LABS: Hematocrit 40.0 % (37.0-47.0); Hemoglobin 13.6 g/dL (12.2-16.2); Immature Granulocytes % 0.4 %; Mean Corpuscular HGB Conc 34.0 g/dL (31.8-35.4); Mean Corpuscular Hemoglobin 29.2 pg (27.0-31.2); Mean Corpuscular Volume 85.8 fl (81-99); Nucleated Red Blood Cells % 0 %; Platelet Count 190 K/mm3 (142-424); Red Blood Count 4.66 M/mm3 (4.20-5.40); Red Cell Distribution Width-SD 42.2 fL; White Blood Count 8.4 K/mm3 (4.8-10.8)
[2025-04-04] MEDS: MORPHINE 4MG/ML SYRINGE 4 MG IV (14:18)
[2025-04-04] MEDS: ONDANSETRON 4MG/2ML VIAL 4 MG IV (14:18)
[2025-04-04] MEDS: LACTATED RINGERS 1000ML 1,000 ML 999 ML IV (14:18)
[2025-04-04 14:22] LABS: Albumin Level 4.8 g/dl (3.5-5.0); Chloride 104 mmol/L (98-107); Potassium 4.0 mmoL/L (3.5-5.1); Sodium 137 mmol/L (136-145)
[2025-04-04 14:25] LABS: Alanine Aminotransferase 14 U/L (12-78); Albumin/Globulin Ratio 1.5 (1.1-1.8); Alkaline Phosphatase 53 U/L (38-126); Anion Gap 12.0 mEq/L (5-15); Aspartate Amino Transferase 20 U/L (14-36); Bilirubin,Total 0.4 mg/dl (0.2-1.3); Blood Urea Nitrogen 17 mg/dl (7-17); Calcium 9.9 mg/dl (8.4-10.2); Carbon Dioxide 25 mmol/L (22.0-30.0); Creatinine Clearance Estimated 104 mL/min (50-200); Creatinine,Serum 1.00 mg/dl (0.52-1.04); Estimated Glomerular Filt Rate 64 ml/min (>60); GFR (African American) 78 ML/MIN (>60); Globulin 3.2 g/dL (1.3-3.2); Glucose 89 mg/dl (74-100); Total Protein,Serum 8.0 g/dl (6.3-8.2)
[2025-04-04 14:51] LABS: HCG Qualitative, Serum Negative (Negative)
--- NOTE | 2025-04-04 15:04 | PC.NURSE ---
Pt to ct via wheelchair
[2025-04-04 15:07] LABS: Microscopic, Urine URINE MICROSCOPIC (MICROSCOPIC)
[2025-04-04] MEDS: IOPAMIDOL-370 (76%);100ML BOTTLE 75 ML IV (15:08)
[2025-04-04] MEDS: SODIUM CHLORIDE 0.9% 10ML SYR (RAD ONLY) 10 ML IV (15:08)
[2025-04-04 15:10] LABS: Bilirubin,Urine Negative (Negative); Color,Urine YELLOW (Yellow); Glucose,Urine (UA) Negative (Negative); Ketones,Urine Negative (Negative); Leukocyte Esterase,Urine Negative (Negative); PH,Urine 6.5 (5.0-8.5); Protein,Urine Negative (Negative); Specific Gravity, Urine 1.010 (1.005-1.030); Urobilinogen,Urine 0.2 EU/dl (0.2)
[2025-04-04 15:44] LABS: Bacteria,Urine 2+ /lpf
[2025-04-04] MEDS: KETOROLAC 15MG/ML VIAL 15 MG IV (16:30)
--- NOTE | 2025-04-04 16:32 | PC.NURSE ---
Provider at bedside perform POCUS of RUQ
--- NOTE | 2025-04-04 16:33 | US_ITS ---
PROCEDURE INFORMATION: Exam: US Pelvis, Transvaginal, Non-Obstetric; US Duplex Artery or Vein of the Abdominal and/or Reproductive Organs, Limited Ovaries Exam date and time: 04/04/2025 4:47 PM Age: 34 years old Clinical indication: Pelvic pain; Additional info: Rlq, rule out ovarian torsion TECHNIQUE: Imaging protocol: Real-time transvaginal pelvic (non-obstetric) ultrasound with image documentation. Transvaginal imaging was used for better evaluation of the endometrium, adnexa, and/or cervix. Real-time duplex ultrasound scan of the arterial or venous flow with harden scale, color Doppler flow and spectral waveform analysis with image documentation. Limited duplex exam focused on the ovaries. Duplex exam was performed to evaluate for torsion and other vascular conditions. COMPARISON: US TRANSVAGINAL 07/18/2023 3:29 PM FINDINGS: Uterus: Uterus measures 9.2 x 4.5 x 5.5 cm in size. No myometrial mass. Endometrium: 1.3 cm in thickness. Trace fluid within endometrial canal. Cervix: Probable nabothian cysts. Right ovary: 3.2 x 4.6 x 3.5 cm in size. 2.2 x 1.7 x 2.3 cm thick-walled hypoechoic lesion with crenulated margins, internal echoes and peripheral vascularity. Normal flow. Left ovary: 1.7 x 1.9 x 2.4 cm in size. No mass. Normal flow. Urinary bladder: Not imaged. Intraperitoneal space: Small free fluid within pelvis. IMPRESSION: Probable involuting or ruptured hemorrhagic RIGHT corpus luteum/cyst.
--- NOTE | 2025-04-04 16:57 | PC.NURSE ---
Pt to ultrasound via wheelchair
--- NOTE | 2025-04-04 17:18 | PC.NURSE ---
Pt returns from ultrasound
== END 2025-04-04 18:13 | disposition home or self-care (01) ==
PROVIDERS: Emergency Provider Student in an Organized Health Care Education/Training Program; PCP Nurse Practitioner Family
DX: R10.31 Right lower quadrant pain (principal); N83.291 Other ovarian cyst, right side; R11.0 Nausea; F17.290 Nicotine dependence, other tobacco product, uncomplicated
CPT/HCPCS: 74177; 76830; 80053; 81001; 84703; 85025; 87086; 96361; 96374; 96375; 99285; J1885; J2270; J2405; J7120; Q9967